=== PATIENT | female | born 1980 | race Caucasian/White ===

== ENCOUNTER → 2018-03-05 07:49 | Outpatient (CLI) | payer OTHER, SELFPAY ==
--- NOTE | 2018-03-05 07:55 | NS.NUTBLAN_ITS ---
Crys returns for follow up nutritional counseling for weight management in preparation for bariatric surgery. Again, she continues to demonstrate that she is highly committed to a lifestyle of weight management. She has incorporated physical activity into each of her days. She will either walk, stationary bike, swim, or mow her lawn. She has one day of rest. She continues with the protein drinks twice daily and she has a supper with protein , vegetable, and a small portion of a starch. She has changed her snacks to all unprocessed foods such as fruits and no longer has Fiber One bars or similar type foods. She continues to drink water. Acknowledged her excellent habits and encouraged her to keep up with them. She is 66 and today is 239.[address]. Her BMI is 37.6 kg/m2. Follow up per [facility] [place] Appointment start time: 0755h End time: 0810h
== END ==
PROVIDERS: PCP Physician Assistant Medical; Visit Provider Dietitian, Registered
DX: E66.9 Obesity, unspecified (principal); Z68.37 Body mass index [BMI] 37.0-37.9, adult; Z71.3 Dietary counseling and surveillance
CPT/HCPCS: 97803

== ENCOUNTER → 2019-04-14 08:36 | Outpatient (REF) | payer OTHER, SELFPAY ==
[2019-04-14 22:14] LABS: Abs Immature Grans 0.03 k/cumm (0.0-0.09); Absolute Basophil Count 0.04 k/cumm (0.0-0.2); Absolute Eosinophil Count 0.08 k/cumm (0.0-0.7); Absolute Monocyte Count 0.81 k/cumm (0.11-0.7); Absolute Neutrophil Count 6.59 k/cumm (1.2-6.7); Basophils % 0.4; Eosinophils % 0.8; HCT 42.4 % (36.0-46.0); HGB 14.7 g/dL (12.0-15.5); Immature Grans % 0.3; Lymphocytes % 23.4; Mean Corp. HGB Concentration 34.7 g/dL (32.0-36.0); Mean Corpuscular Hemoglobin 36.3 pg (27.0-33.0); Mean Corpuscular Volume 104.7 fL (80-95); Mean Platelet Volume 9.5 fL (8.0-11.0); Monocytes % 8.2; Neutrophils % 66.9; Platelet Count 251 x1000/uL (130-400); RBC 4.05 m/cumm (4.00-5.20); White Blood Cell Count 9.85 k/cumm (4.4-10.8)
[2019-04-14 22:26] LABS: Iron 182 ug/dL (50-175); Total Iron Binding Capacity 274 ug/dL (250-450); Transferrin Sat 66 % (15-50)
[2019-04-14 22:58] LABS: Ferritin 86 ng/mL (8-388)
== END ==
LOC: NCHCN 08:36
PROVIDERS: PCP Physician Assistant Medical; Visit Provider Physician Assistant Medical
DX: R23.8 Other skin changes (principal)
CPT/HCPCS: 82728; 83540; 83550; 85025

== ENCOUNTER 2019-06-09 09:27 | Outpatient (REF) | payer OTHER, SELFPAY | END 2019-06-09 09:47 | LOC: NCHCN 09:27 | PROVIDERS: PCP Physician Assistant Medical; Visit Provider Physician Assistant Medical | DX: N76.0 Acute vaginitis (principal) | CPT/HCPCS: 87480; 87510; 87660 ==

== ENCOUNTER 2019-08-05 08:48 | Outpatient (CLI) | payer OTHER, SELFPAY ==
[2019-08-05 09:07] VITALS: BP 99/72; PULSE 60; RESP 16; TEMP 36.5; O2SAT 100
--- NOTE | 2019-08-05 10:52 | PDOC.PAIN ---
Pain Clinic Procedure Note Procedure Note Procedure Note: Bilateral Lumbar Radiofrequency with Coolief Machine PROCEDURE NOTE Date of Service: August 05, 2019 Patient: AILEEN BURNHAM Provider: Apollo Wong MD Pre Operative Diagnosis: lumbar spondylosis Post Operative Diagnosis: same as above PROCEDURE Radiofrequency Ablation of medial branches - bilateral L3, L4, L5-DR CASEY to target bilateral L4/5 and L5/S1 facet joints AILEEN BURNHAM was brought into the fluoroscopy suite and positioned into the prone position on the fluoroscopy table and allowed to adjust to a position of comfort. A grounding pad was placed on the right thigh. The lumbar region was widely prepped with a chloraprep solution, allowed to air dry and draped in standard sterile surgical fashion. Local anesthesia was provided by 15 mL of 2 %lidocaine delivered with a 25g needle. A 17g 100mm radiofrequency introducer needle was placed to the planned anatomic targets guided with intermittent fluoroscopy with a perpendicular approach to terminally place at the junction of the superior articular process and the transverse process of the bilateral L3, L4 and the base of the sacral ala on the bilateral for the L5 medial branch nerve. The stylets were removed and radiofrequency probes with a 4mm active tip were then inserted. Needle tip position of the probes was verified in the AP, oblique, and lateral views. At each site, the medial branch nerve was stimulated at 2 Hz to a maximum 1-2 volts determined to finalize safe needle and electrode placement. The patient was awake and responsive during this portion of the procedure. Each target was anesthetized with 1 mL of 2 % lidocaine for anesthesia for lesioning and then each target was lesioned at 80 degrees Celsius for 2 minutes and 30 seconds. Tissue impedences were noted to be between 250 and 500 Ohms. Electrodes and needles were then removed and bandages placed over the needle placement sites, the patient then returned to the supine position on a stretcher and transported to the recovery room without hemodynamic, neurologic, or allergic reactions. Fluoroscopic images were printed for hard copy recording and digitally archived. POST PROCEDURE EVALUATION: patient tolerated procedure well without need for IV sedation. Several attempts were made to obtain an IV, however, it was not successful prior to beginning of procedure. Follow up plans and appointments were discussed with the AILEEN . Post procedure instruction was given as documented in nursing documentation and having met discharge criteria, AILEEN was discharged from the [facility]. COMMENTS: No complications. F/U with our office as needed. I personally performed this entire procedure. Apollo Wong MD Pain Management Attending Physician
[2019-08-05 10:55] VITALS: BP 126/93; PULSE 63; RESP 16; O2SAT 99
--- NOTE | 2019-08-05 11:14 | DI.RAD_ITS ---
EXAM: XR PAIN CLINIC LUMBAR SP 2V CLINICAL HISTORY: Dx: Lumbar Spondylosis. TECHNIQUE: Fluoroscopy was provided for the referring physician for guidance with performing injecti on procedure. Fluoro time: 1.2 min, 15.21 mGy COMPARISON: No exams were available for comparison FINDINGS: Please see procedure note for details.
[2019-08-05] MEDS: methylPREDNISolone ACETATE 80 MG/ML VIAL IJ (11:22)
[2019-08-05] MEDS: Lidocaine 2% Pres-Free 5 ML VIAL IJ (11:24)
== END 2019-08-05 09:08 ==
PROVIDERS: PCP Physician Assistant Medical; Visit Provider Internal Medicine
DX: M47.816 Spondylosis without myelopathy or radiculopathy, lumbar region (principal)
CPT/HCPCS: 64635; 64636; 72100; J1040

== ENCOUNTER 2019-08-13 00:31 | Outpatient (CLI) | payer OTHER, SELFPAY ==
--- NOTE | 2019-08-13 08:10 | DI.MAMMO_ITS ---
EXAM: MAMMO SCREENING CLINICAL HISTORY: SCREENING, Z12.31, HEALTH MAINTENANCE EXAM, Z00.8. TECHNIQUE: Bilateral full field digital CC and MLO mammographic images were obtained with 3D tomosyn thesis and utilizing computer aided detection (CAD). COMPARISON: Available for comparison. FINDINGS: Masses/Architectural Distortion: None seen. Microcalcifications: No suspicious pleomorphic-type are seen. Skin Thickening/Nipple Retraction: None. IMPRESSION: 1. No significant interval change with no specific features of malignancy noted. 2. Unless there is more urgent need, screening mammography is recommended, as per [employer] guidelines. ACR BI-RAD Category- 1 Negative Breast Density - Category B - Scattered areas of fibroglandular density A negative radiographic report should not delay biopsy if a dominant or clinically suspicious mass is present. Up to ten percent of cancers are not identified on mammography. A negative report may reinforce clinical impression. Adenosis and dense breasts may obscure an underlying neoplasm. False positive reports average 6 to 10%. Patient will receive a letter notifying them of these results.
== END 2019-08-13 00:51 ==
PROVIDERS: PCP Physician Assistant Medical; Visit Provider Physician Assistant Medical
DX: Z12.31 Encounter for screening mammogram for malignant neoplasm of breast (principal)
CPT/HCPCS: 77063; 77067

== ENCOUNTER 2019-09-08 20:39 | Outpatient (REF) | payer OTHER, SELFPAY ==
[2019-09-08 19:38] LABS: Abs Immature Grans 0.03 k/cumm (0.0-0.09); Absolute Basophil Count 0.02 k/cumm (0.0-0.2); Absolute Eosinophil Count 0.08 k/cumm (0.0-0.7); Absolute Neutrophil Count 3.38 k/cumm (1.2-6.7); Basophils % 0.4; Eosinophils % 1.4; HCT 42.1 % (36.0-46.0); HGB 13.8 g/dL (12.0-15.5); Immature Grans % 0.5 %; Mean Corp. HGB Concentration 32.8 g/dL (32.0-36.0); Mean Corpuscular Hemoglobin 34.8 pg (27.0-33.0); Mean Platelet Volume 8.7 fL (8.0-11.0); Monocytes % 10.5; Neutrophils % 59.2; Platelet Count 224 x1000/uL (130-400); RBC 3.97 m/cumm (4.00-5.20); RBC Distribution Width 12.2 % (11.7-14.6); White Blood Cell Count 5.71 k/cumm (4.4-10.8)
[2019-09-08 20:07] LABS: Diff Comment RBC Morph Reviewed; Macrocytosis 3+
== END 2019-09-08 20:59 ==
LOC: NCHCN 20:39
PROVIDERS: PCP Physician Assistant Medical; Visit Provider Physician Assistant Medical
DX: Z98.84 Bariatric surgery status (principal)
CPT/HCPCS: 85025

== ENCOUNTER 2019-10-15 02:13 | Outpatient (CLI) | payer OTHER, SELFPAY ==
--- NOTE | 2019-10-15 | DI.MRI_ITS ---
EXAM: MR LUMBAR SPINE WO CLINICAL HISTORY: LOW BACK PAIN M54.5. TECHNIQUE: Multiplanar multisequence MRI was performed. COMPARISON: MRI - LUMBAR SPINE WO CONTRAST from 10/12/2017 FINDINGS: MR examination of the lumbosacral spine was performed and is compared with prior study 10/12/2017. M ild bony signal changes seen adjacent to L5-S1 intervertebral disc consistent with disc degeneration. Signal loss noted in L4-5 and L5-S1 intervertebral discs also consistent with disc degeneration. T here is loss of disc height at L5-S1. The conus medullaris appears intact. No bony central canal spinal stenosis seen. There is moderate bilateral neural foraminal stenosis at L5-S1, grossly unchanged from prior study of 10/12/2017. There is mild disc bulge at L 1-2 and L2-3 levels without significant disc herniation or neural impin gement. No significant findings at L3-4. At L4-5, there is a slight central disc herniation which is new since 2018, no gross neural impingeme nt. At L5-S1, there is a moderate-sized, broad-based disc herniation slightly more prominent than on prio r study of 2018, this contributes to narrowing of the neural foramina bilaterally. The L5 nerve root s may potentially be impinged bilaterally in the neural foramina. IMPRESSION: Small new disc herniation at L4-5, no gross neural impingement. Mild increase in prominence of broad-based disc herniation at L5-S1, bilateral neural foraminal narro wing again noted, grossly unchanged from 2018. DATA REPOSITORY:
--- NOTE | 2019-10-15 | DI.RAD_ITS ---
EXAM: XR SACROILIAC JOINTS XR SACROILIAC JOINTS CLINICAL HISTORY: LOW BACK PAIN M54.5 LOW BACK PAIN M54.5 TECHNIQUE: COMPARISON: No exams were available for comparison FINDINGS: Four views were obtained. Fixation devices are seen superimposed over the SI joints bilaterally. Ot herwise the SI joints appear well maintained. There are prominent hypertrophic degenerative changes of the lower lumbar spine and there are is marked disc space narrowing L4-5 and L5-S1 consistent with disc degeneration at these levels. IMPRESSION:
== END 2019-10-15 02:33 ==
PROVIDERS: PCP Physician Assistant Medical; Visit Provider Physician Assistant Medical
DX: M54.5 Low back pain (principal); M51.37 Other intervertebral disc degeneration, lumbosacral region; M51.27 Other intervertebral disc displacement, lumbosacral region
CPT/HCPCS: 72148; 72202

== ENCOUNTER 2020-03-02 09:32 | Outpatient (CLI) | payer OTHER, SELFPAY ==
--- NOTE | 2020-03-02 06:00 | DI.RAD_ITS ---
EXAM: XR PAIN CLINIC LUMBAR SP 2V CLINICAL HISTORY: Dx:Lumbar Radiculopathy COMPARISON: No exams were available for comparison FINDINGS: C-arm fluoroscopy was utilized by Dr. Wong. Please see Dr. Wong's procedure note. Hard copy shows inject ion at the neural foramen on the right at what appears to be the L5-S1 level. Fluoro time, 137 seconds.
[2020-03-02 10:13] VITALS: BP 136/72; PULSE 71; RESP 17; TEMP 36.6; O2SAT 98
--- NOTE | 2020-03-02 10:22 | PDOC.PAIN ---
Pain Clinic Procedure Note Procedure Note Procedure Note: PROCEDURE NOTE Transforaminal Epidural Steroid Injection with Fluoroscopic Guidance at RIGHT L5 TFESI Chief Complaint: RIGHT leg pain. Pre-operative diagnosis: LUMBAR RADICULOPATHY Post-operative diagnosis: SAME ABOVE AILEEN BURNHAM has been referred to the [facility] for Lumbar Transforaminal Epidural Steroid Injection RIGHT L5 TFESI. COMMENTS: Referring provider: Dr. Kramer, Ms MoyCadence Cresencio, CHARGE MASTER SPECIALIST Pre-procedure VAS: 7/10 to the RIGHT leg, patient reports pain is mainly in the right groin. She denies lateral thigh pain, no posterior right leg pain. In fact, she reports minimal pain down the right leg. Patient also reports right groin pain has been present since before her SI joint fusion surgery. Follow up plan: pending result from today's injection, patient will follow up with Ms Dupont or Dr Kramer to discuss the next steps in management. AILEEN BURNHAM was greeted by the nurse who verified patients name and . Patient was then taken to the fluoroscopy suite. AILEEN was interviewed and the medical record reviewed. There were no medical, pharmacologic, radiographic or other structural contraindications to attempting fluoroscopically guided transforaminal lumbar epidural steroid injection. The risks, benefits, and potential side effects were reviewed with the patient. Risk include, but not limited to, post dural puncture, headache, infection, nerve injury, allergic reaction, possible increase in symptoms over the ensuing 24 to 48 hours, and paralysis. The patient appeared to understand, questions were answered and the patient agreed to proceed. Once I obtained informed verbal consent, the printed consent form was signed by the patient and myself. Standard time-out procedure was performed. TECHNIQUE: After informed written consent was obtained the patient was placed in the prone position. The lumbar spine was prepped with chloraprep and draped. Sterile technique was observed during the entire procedure ( cap, gloves, and mask were worn). Vitals signs were monitored throughout the procedure. The right side was marked with a radioopaque marker. The skin and subcutaneous structures were anesthetized with lidocaine 1% to a total volume of 3 ML at each level. Under fluoroscopic guidance, in ipsilateral oblique view, co-axial approach, 22 gauge 5'' spinal needle(s) were advanced to the base of the L5 pedicle(s). The needle(s) were advanced to the superio-posterior aspect of the neural foramen under lateral view. Oblique and AP views were rechecked. Under AP view Omnipaque 240 1 cc's was injected while visualized with fluoroscopy. There was no evidence of intravascular uptake, the epidural space was delineated. 15 mg Dexamethasone was injected after negative aspiration, at each level, followed by lidocaine 1% 1.0-ML at each level. (49 cc of Omnipaque was wasted) Outcome: The patient tolerated the procedure well and had stable vital signs. The patient noted after getting up after the procedure that their right leg pain (groin) was at a 5 out of 10 level. Follow up plans and appointments were discussed with AILEEN . The patient was observed in the pain clinic and then discharged after having met discharge criteria to the care of a stacker driver. The patient received written instructions as documented in nursing records. Disposition: AILEEN was discharged from the procedure suite without new neurological complaints. Follow-up: Follow up with as scheduled or PRN. I personally performed the entire procedure. Apollo Wong MD ABPN-subspecialty board certification in Pain Medicine Attending Physician-Pain Management
[2020-03-02] MEDS: Dexamethasone Sod. Phos./Pres-Free 10 MG/ML VIAL IJ (10:46)
[2020-03-02] MEDS: Omnipaque 240 MG/ML 50 ML BTL IJ (10:47)
[2020-03-02 10:48] VITALS: BP 126/85; PULSE 69; RESP 13; O2SAT 100
== END 2020-03-02 09:52 ==
PROVIDERS: PCP Physician Assistant Medical; Visit Provider Internal Medicine
DX: M54.16 Radiculopathy, lumbar region (principal)
CPT/HCPCS: 64483; 72100; Q9967

== ENCOUNTER 2020-06-28 09:29 | Outpatient (REF) | payer OTHER, SELFPAY ==
[2020-06-28 19:29] LABS: Abs Immature Grans 0.04 10^3/uL (0.0-0.06); Absolute Basophil Count 0.05 10^3/uL (0.0-0.2); Absolute Lymphocyte Count 1.47 10^3/uL (1.2-3.4); Absolute Monocyte Count 0.79 10^3/uL (0.1-0.8); Absolute Neutrophil Count 7.91 10^3/uL (1.2-6.7); Basophils % 0.5; HCT 44.2 % (36.0-46.0); HGB 14.3 g/dL (11.2-15.7); Immature Grans % 0.4; Lymphocytes % 14.2; MCH 35.5 pg (27.0-33.0); MCHC 32.4 % (32.0-36.0); MCV 109.7 fL (80-95); MPV 9.1 fL (8.0-11.0); Monocytes % 7.6; Neutrophils % 76.3; Nucleated RBC 0 %; Platelet Count 228 10^3/uL (130-400); RBC 4.03 10^6/uL (3.93-5.22); RDW 12.2 % (11.7-14.6); RDW-SD 50.1 fL; WBC 10.36 10^3/uL (4.4-10.8)
[2020-06-28 19:36] LABS: ALT 27 U/L (14-59); AST 22 U/L (15-37); Albumin 3.7 g/dL (3.4-5.0); Alkaline Phosphatase 69 U/L (46-116); Amylase 58 U/L (25-115); Anion Gap 5.1 mmol/L (3-11); BUN 10 mg/dL (7-18); Bilirubin, Total 0.3 mg/dL (0.2-1.0); CO2 27.9 mmol/L (21.0-32.0); CREATININE 0.84 mg/dL (0.55-1.02); Chloride 108 mmol/L (98-107); Glucose 97 mg/dL (74-106); Lipase 75 U/L (73-393); Potassium 4.6 mmol/L (3.5-5.1); Sodium 141 mmol/L (136-145); Total Protein 6.6 g/dL (6.4-8.2)
[2020-06-28 19:50] LABS: Diff Comment RBC Morph Reviewed
[2020-06-28 19:51] LABS: Macrocytosis 2+
== END 2020-06-28 09:49 ==
LOC: NCHCN 09:29
PROVIDERS: PCP Physician Assistant Medical; Visit Provider Physician Assistant Medical
DX: R11.10 Vomiting, unspecified (principal)
CPT/HCPCS: 80053; 83690; 82150; 85025

== ENCOUNTER 2020-07-05 00:29 | Outpatient (CLI) | payer OTHER, SELFPAY ==
--- NOTE | 2020-07-05 | DI.US_ITS ---
EXAM: US RENAL CLINICAL HISTORY: URINARY HESITANCY,R39.11 TECHNIQUE: Ultrasound performed using standard protocol. COMPARISON: US PELVIS TRANSVAG from 07/03/2017 FINDINGS: Renal ultrasound was performed according to the usual protocol. Kidneys are normal in size and shape and there is no evidence of renal mass, hydronephrosis, or nephrolithiasis. Ureteral jets are noted bilaterally. Urinary bladder appears intrinsically intact, pre and postvoid urinary bladder volume measurements are 136 cc and 73 cc respectively. IMPRESSION: Postvoid residual volume of the urinary bladder at 73 cc. No intrinsic abnormality of the bladder. No abnormality of the upper urinary tracts. DATA REPOSITORY:
== END 2020-07-05 00:49 ==
PROVIDERS: PCP Physician Assistant Medical; Visit Provider Physician Assistant Medical
DX: R39.11 Hesitancy of micturition (principal)
CPT/HCPCS: 76770

== ENCOUNTER → 2020-07-09 10:38 | Outpatient (BNVA) | payer OTHER, SELFPAY | PROVIDERS: PCP Physician Assistant Medical; Referring Provider Physician Assistant Medical; Visit Provider Surgery | DX: R11.10 Vomiting, unspecified (principal); Z98.84 Bariatric surgery status; Z11.59 Encounter for screening for other viral diseases | CPT/HCPCS: 99202; 99213 ==

== ENCOUNTER 2020-07-16 03:25 | Outpatient (CLI) | payer OTHER, SELFPAY ==
[2020-07-19 17:09] LABS: COVID-19 RT-PCR Result NEGATIVE (Negative)
== END 2020-07-16 03:45 ==
PROVIDERS: PCP Physician Assistant Medical; Visit Provider Surgery
DX: Z11.59 Encounter for screening for other viral diseases (principal); Z01.818 Encounter for other preprocedural examination
CPT/HCPCS: U0003

== ENCOUNTER 2020-07-21 11:07 | Day surgery (SDC) | payer OTHER, SELFPAY ==
--- NOTE | 2020-07-21 07:12 | ENDO_ITS ---
Date of service: 07/21/20 Time of Service: 13:32 Endoscopy Report DATE OF PROCEDURE: 07/21/20 PRE-OP DIAGNOSIS: Post-prandial vomiting POST-OP DIAGNOSIS: other (mild inflammation in the gastric remnant and the esophagus) PROCEDURE: EGD with biopsies SURGEON: Angy Araya ANESTHESIA: other (General/ASA 2/Courtney moctezuma, ABEBA) ESTIMATED BLOOD LOSS: 3 PATHOLOGY: other (gastric remnant bx, ge junction bx) COMPLICATIONS: None DISPOSITION: same day INDICATIONS: Ms Giraldo is a pleasant 40-year-old female status post Dev-en-Y gastric bypass a couple years ago. About 6 months ago she started to have intermittent postprandial vomiting. Over the last 6 weeks that has become more frequent and she is now noticing some blood. She states that usually she has a bout of emesis 1 to 2 hours after eating. Sometimes is undigested food other times is a little bit of acid and bile. She has also developed some burning feeling in the back of her throat. She has been on Protonix 40 mg twice daily since after her surgery. Recently she was switched to Nexium. She has not noticed any changes in symptoms. I suspect that she has a marginal ulcer which is a complication of a Dev-en-Y surgery. She may have some obstruction as well due to the ulcer. If it is a marginal ulcer then she will need some Carafate as most of the time its bile that is irritating the stomach lining. We discussed EGD with biopsies. We also reviewed possible dilation if there is a component of obstruction. Risks, benefits and complications have been reviewed. Complications include but are not limited to bleeding, pain, perforation, sore throat, aspiration, and adverse reaction to the medications. Questions were entertained and answered to their satisfaction and they wished to proceed. No guarantees were given or implied. We also discussed testing as well as quarantine requirements per state and hospital policy. COVID-19 testing explained to the patient. Reason for test reviewed. Quarantine per state requirements reviewed with patient. Patient understands and agrees to testing. We will schedule the patient for an EGD with biopsies 3 to 4 days after Covid testing. FINDINGS: mild inflammation in the gastric remnant and distal esophagus. No strictures or ulcers PROCEDURE DESCRIPTION: After informed consent was obtained the patient was take to the procedure room and placed in a supine position. Monitors were applied and a time out was done. The patients name, date of , procedure type, allergies to medications and metal in their body was reviewed. A bite block was placed and the patient was sedated. Once sedated and comfortable the gastroscope was advanced through the oropharynx which was grossly normal into the esophagus. The proximal and mid- esophagus were normal. In the distal esophagus there was mild inflammation noted. The scope was advanced into the stomach remnant and into the small bowel. There was no inflammation of the small bowel. There were no marginal ulcers. There were no strictures. Biopsies of the gastric remnant were done. The scope was retracted back into the esophagus and biopsies were done of the GE junction to rule out Mccrary's. The Z line was regular. The GE junction was at 35 cm. There was no scarring and no ulcers. The scope was removed and the patient was woken up and taken back to [facility] in stable condition. Follow up: in 2 weeks. Will start patient on carafate
--- NOTE | 2020-07-21 07:14 | PDOC.DSDIS_ITS ---
Discharge Plan Disposition Patient Disposition: HOME Condition: Good Discharge Details Reason For Visit: post-prandial vomiting Attending Provider: Angy Araya Primary Care Provider: Jo Shrestha Home Meds and New Rx's Prescriptions: New sucralfate [Carafate] 1 gram tablet 1 g PO QID Qty: 56 RF: 0 Continued trazodone 100 mg Tablet 100 mg PO HS PRN PRNRF: 0 ondansetron 4 mg Tablet,Disintegrating 4 mg PO Q8H PRNRF: 0 topiramate 100 mg Tablet 200 mg PO BID RF: 0 oxycodone 5 mg Tablet 5 mg PO BID PRNRF: 0 duloxetine [Cymbalta] 60 mg Capsule,Delayed Release(Dr/Ec) 60 mg PO DAILY RF: 0 chlorhexidine gluconate [Peridex] 0.12 % Mouthwash 15 ml BUCCAL BID RF: 0 Flintstones Complete Tablet,Chewable 1 tab PO BID RF: 0 alisa citrate-mag ox,aspart-D3 250 mg-125 mg- 200 unit Wafer 1 wafer PO BID RF: 0 Benefiber Chewable 3 tab PO DAILY RF: 0 bupropion HCl [Wellbutrin SR] 200 mg Tablet Sustained-Release 12 Hr 400 mg PO DAILY RF: 0 albuterol sulfate [ProAir HFA] 8.5 GM HFA aerosol inhaler 2 puff Inhalation Q4H PRN PRNRF: 0 lansoprazole 30 mg capsule,delayed release(DR/EC) 30 mg PO DAILY RF: 0 fexofenadine [Pina Allergy] 180 mg tablet 180 mg PO DAILY RF: 0 baclofen 10 MG tablet 10 mg PO BID PRNRF: 0 fluticasone propionate 16 GM spray,suspension 2 spray NS DAILY PRNRF: 0 Spiriva with HandiHaler 1 PUFF capsule, w/inhalation device 1 tab PO DAILY RF: 0 cyanocobalamin (vitamin B-12) [Vitamin B-12] 500 MCG tablet 1 tab PO DAILY RF: 0 Discharge Instructions Additional Instructions: Findings: mild inflammation. No ulcers. No scar tissue Follow up: 2 weeks medications: Start carafate, 1 tab before meals and at bedtime. Please call if you develop: fevers >101.5 Nausea or Vomiting Abdominal pain that is not transient DAY SURGERY UNIT POST ENDOSCOPY INSTRUCTIONS 1. Because there will be medication in your system for the next 24 hours, you may feel a little sleepy. Your coordination will be affected. Therefore: a. Do not drive or operate dangerous equipment for 24 hours. b. Do not drink alcohol beverages for 24 hours (not even beer). c. Plan to go home and rest for the day. 2. Generally there are no restrictions on your activity after a day or so has gone by, but you may feel a bit fatigued for a few days. 3 After you arrive home you may have a light meal and return to a normal diet as you can tolerate it without feeling sick to your stomach. 4. After surgery, you may feel pain or discomfort. This should be only transient, but if it persists please contact your doctor. 5. If there are any questions regarding the findings of your procedure, please feel free to contact your doctor. 6. If you are unable to contact your doctor with a problem, contact the hospital at [phone]. 7. Continue all your regular medications unless directed otherwise. I understand the above instructions and have no questions. Signature of Patient or Responsible Adult Escort Date/Time Name of Responsible Adult Escort Signature of Nurse Date/Time Referrals: Angy Araya MD [ [facility] STAFF PHYSICIAN] - 08/03/20 2:30 pm Activity:: Activity as Tolerated Diet:: As Tolerated Discharge Orders Discharge Orders: Discharge Order (Routine); Ordered 07/21/20 Ordered By: Angy Araya
[2020-07-21 11:19] VITALS: BP 115/74; PULSE 70; RESP 16; TEMP 36.2; O2SAT 96
[2020-07-21] MEDS: Lactated Ringers 1,000 ML 80 ML IV (11:51)
--- NOTE | 2020-07-21 13:20 | STOM_PTH ---
PATIENT: Crys Giraldo LOC: [facility] U#:[id number] AGE/SX: 40/F ROOM: RE07/21/[address]: Angy Araya MD : 1980 BED: DIS: 07/21/2020 SPEC #: [id number] RECD: 07/21/20 16:18 STATUS: KATTY REQ #: [id number] TRACEY: 07/21/20 13:[address]: Angy Araya DEPT: Surgical Specimen RECD BY: Elke Kumar ENTERED: 07/21/20 16:19 SP TYPE: STOMACH OTHR DR: Jo Shrestha Tissues: 1 - STOMACH BIOPSY 2 - ESOPHAGUS BIOPSY Procedures: GROSS AND MICRO LEVEL 4 Comments: [id number]
[2020-07-21 13:46] VITALS: BP 121/83; PULSE 68; RESP 16; TEMP 36.1; O2SAT 98
== END 2020-07-21 13:55 | disposition home or self-care (01) ==
LOC: SUR 11:08
PROVIDERS: PCP Physician Assistant Medical; Visit Provider Surgery
PROC: 0D758ZZ Dilation of Esophagus, Via Natural or Artificial Opening Endoscopic (ICD-10-PCS; CPT 43239; principal; 2020-07-21 13:00)
DX: K92.0 Hematemesis (principal); Z98.84 Bariatric surgery status; K29.70 Gastritis, unspecified, without bleeding; K20.90 Esophagitis, unspecified without bleeding
CPT/HCPCS: 43239; 88305; J2001

== ENCOUNTER → 2020-08-03 10:10 | Outpatient (BNVA) | payer OTHER, SELFPAY | PROVIDERS: PCP Physician Assistant Medical; Referring Provider Physician Assistant Medical; Visit Provider Surgery | DX: R11.10 Vomiting, unspecified (principal); Z98.84 Bariatric surgery status | CPT/HCPCS: 99212; 99213 ==

== ENCOUNTER 2020-09-07 16:49 | Outpatient (REF) | payer OTHER, SELFPAY ==
[2020-09-08 09:00] LABS: C Diff PCR Negative (Negative)
[2020-09-08 11:41] LABS: Campylobacter PCR Negative (Negative); Salmonella PCR Negative (Negative); Shiga Toxin PCR Negative (Negative); Shigella/Enteroinvasive Ecoli Negative (Negative)
== END 2020-09-07 16:50 | disposition home or self-care (01) ==
LOC: LBN 16:49
PROVIDERS: PCP Physician Assistant Medical; Visit Provider Physician Assistant Medical
DX: R19.7 Diarrhea, unspecified (principal)
CPT/HCPCS: 87329; 87493; 87505; 83630; 87324

== ENCOUNTER 2020-10-28 01:39 | Outpatient (CLI) | payer OTHER, SELFPAY ==
--- NOTE | 2020-10-28 08:05 | DI.RAD_ITS ---
EXAM: XR SHOULDER RT COMPLETE 2+V CLINICAL HISTORY: RT SHOULDER PAIN, M25.511 TECHNIQUE: COMPARISON: No exams were available for comparison FINDINGS: Five views were obtained. There is reportedly history of shoulder pain with no history of recent inj ury. There are ossific radiodensities projected in the soft tissues adjacent to the acromioclavicular join t and the acromion, these may represent previous injury. Alternatively these could represent fragmen tation of osteophytes. No other significant bony abnormality seen. The cartilaginous joint space of the glenohumeral joint appears fairly well maintained. Alignment ap pears within normal limits IMPRESSION: Question post-traumatic and/or degenerative changes involving acromion and AC joint. No additional s ignificant findings. RADIATION DOSE DELIVERED: Total DLP
--- NOTE | 2020-10-28 08:05 | DI.RAD_ITS ---
EXAM: XR HAND RT COMPLETE CLINICAL HISTORY: HAND PAIN, M79.643. TECHNIQUE: 2D digital imaging was performed. COMPARISON: No exams were available for comparison FINDINGS: There is no evidence of fracture or dislocation. No osseous lesions. No erosions evident. No radio paque foreign body. Para-articular calcifications. No obvious findings at the level of the wrist an d no significant ulnar variance. IMPRESSION: DATA REPOSITORY: RADIATION DOSE DELIVERED:
--- NOTE | 2020-10-28 08:05 | DI.RAD_ITS ---
EXAM: XR HAND LT COMPLETE CLINICAL HISTORY: HAND PAIN, M79.643. TECHNIQUE: 2D digital imaging was performed. COMPARISON: CR XR HAND RT COMPLETE from 10/28/2020 FINDINGS: No evidence of fracture or dislocation. Thumb is flexed. No obvious erosions at the metacarpophalan geal joints nor elsewhere left hand and wrist. No significant ulnar variance at the wrist level. Titi ne density is normal. There are no osseous lesions. No abnormal soft tissue calcifications. IMPRESSION: DATA REPOSITORY: RADIATION DOSE DELIVERED:
--- NOTE | 2020-10-28 08:06 | DI.RAD_ITS ---
EXAM: XR HIP RT COMPLETE AP PELVIS CLINICAL HISTORY: RT HIP PAIN, M25.551. TECHNIQUE: 2D digital imaging was performed. COMPARISON: CR LUMBAR SPINE COMPLETE from 08/07/2017 FINDINGS: Again noted symmetrical appearing hardware across both sacroiliac joints. There is no ankylosis of t he SI joints. Hips appear unremarkable including lateral view the right hip. There is no hip joint space narrowing on either side.. Bone density is normal. No osseous lesions evident. IMPRESSION: DATA REPOSITORY: RADIATION DOSE DELIVERED:
== END 2020-10-28 01:59 ==
PROVIDERS: PCP Physician Assistant Medical; Visit Provider Physician Assistant Medical
DX: M25.551 Pain in right hip (principal); M25.511 Pain in right shoulder; M79.641 Pain in right hand; M79.642 Pain in left hand
CPT/HCPCS: 73030; 73130; 73502

== ENCOUNTER 2020-12-01 09:17 | Outpatient (CLI) | payer OTHER, SELFPAY ==
--- NOTE | 2020-12-01 09:00 | DI.RAD_ITS ---
Exam(s) XR SHOULDER LT COMPLETE 2+V EXAM: XR SHOULDER LT COMPLETE 2+V CLINICAL HISTORY: left shoulder pain. TECHNIQUE: 2D digital imaging was performed. COMPARISON: No exams were available for comparison FINDINGS: BONES: No acute fracture is present. No bony destructive lesion is seen. JOINTS: No dislocation present. Mild hypertrophic changes are seen at the acromioclavicular joint. T he glenohumeral joint is well maintained. SOFT TISSUE: Normal. IMPRESSION: Mild degenerative changes of the left AC joint. DATA REPOSITORY: RADIATION DOSE DELIVERED:
== END 2020-12-01 09:18 | disposition home or self-care (01) ==
LOC: DIORS 09:17
PROVIDERS: PCP Physician Assistant Medical; Referring Provider Physician Assistant Medical; Visit Provider Student in an Organized Health Care Education/Training Program
DX: M25.511 Pain in right shoulder (principal); M25.512 Pain in left shoulder
CPT/HCPCS: 99203; 99213; 73030

== ENCOUNTER 2020-12-03 04:19 | Outpatient (CLI) | payer OTHER, SELFPAY ==
--- NOTE | 2020-12-03 | DI.MAMMO_ITS ---
Exam(s) US BREAST RT LIMITED MG MAMMO DIAGNOSTIC BI EXAM: US BREAST RT LIMITED and mammo diagnostic bilateral CLINICAL HISTORY: RT BREAST LUMP, N63.0. TECHNIQUE: Craniocaudal and mediolateral oblique Full Field Digital Mammography views with Computer Aided Diagnosis followed by Tomosynthesis and right breast ultrasound. COMPARISON: Priors available for comparison. FINDINGS: Mammography/Tomosynthesis: Masses/Architectural Distortion: None seen. Microcalcifictions: No suspicious pleomorphic-type are seen. Skin Thickening/Nipple Retraction: None. Right breast US: Echotexture: Normal appearance of the glandular tissue. Shadowing: No suspicious foci. Cyst: None. Solid lesions: None seen. Ductal dilation: None. IMPRESSION: 1. No evidence of malignancy is noted. 2. Unless there is more urgent need, follow-up screening mammography is recommended, as per [employer] guidelines. A negative mammogram and ultrasound should not preclude biopsy of a clinic ally suspicious mass. 3. The findings were discussed with the patient on the date of the examination. BI-RADS Category 1 - Negative Breast Density - Category B - Scattered areas of fibroglandular density Breast density Category C or D implies that the patient has dense breast tissue. Dense breast tissue can make it harder to find cancer on a mammogram. Dense breast tissue is also associated with an incr eased risk of breast cancer. This information about the result of the mammogram report was provided to the patient to raise their awareness. Use this report when you speak with the patient about their risks for breast cancer, which includes their family history. At that time, you may recommend additional screening tests (Ultrasoun d or MRI) as these tests may add significant information. A negative radiographic report should not delay biopsy if a dominant or clinically suspicious mass is present. Up to ten percent of cancers are not identified on mammography. A negative report may reinforce clinical impression. Adenosis and dense breasts may obscure an underlying neoplasm. False positive reports average 6 to 10%. Patient will receive a letter notifying them of these results.
== END 2020-12-03 04:39 ==
PROVIDERS: PCP Physician Assistant Medical; Visit Provider Physician Assistant Medical
DX: N63.10 Unspecified lump in the right breast, unspecified quadrant (principal)
CPT/HCPCS: 76642; 77062; 77066; G0279

== ENCOUNTER → 2021-02-01 08:41 | Outpatient (BNVA) | payer OTHER, SELFPAY | PROVIDERS: PCP Physician Assistant Medical; Referring Provider Physician Assistant Medical; Visit Provider Student in an Organized Health Care Education/Training Program | DX: M75.21 Bicipital tendinitis, right shoulder (principal); M75.22 Bicipital tendinitis, left shoulder; M75.51 Bursitis of right shoulder; M75.52 Bursitis of left shoulder; M25.311 Other instability, right shoulder; M25.312 Other instability, left shoulder; M75.41 Impingement syndrome of right shoulder; M75.42 Impingement syndrome of left shoulder | CPT/HCPCS: 99213 ==

== ENCOUNTER 2021-02-24 02:58 | Outpatient (CLI) | payer OTHER, SELFPAY ==
--- NOTE | 2021-02-24 06:45 | DI.MRI_ITS ---
Exam(s) MR UPPER JOINT RT WO EXAM: MR UPPER JOINT RT WO CLINICAL HISTORY: PAIN,IMPINGEMENT SYNDROME,BURSITIS, TENDINITIS, INSTABILITY,M75.22,M75.21,M TECHNIQUE: Multiplanar multisequence MRI of the shoulder was performed. COMPARISON: CR XR SHOULDER LT COMPLETE 2+V from 12/01/2020 FINDINGS: MARROW:There is no evidence of fracture, Hill-Sachs deformity, nor ominous osseous lesions. ROTATOR CUFF MECHANISM: AC JOINT/ACROMIUM: There are moderate degenerative changes in the AC joint. Downgoing osteophyte on the clavicular side causing some impingement upon the subacromial space. The undersurface of the acr omion flat. There is no evidence of os acromiale. Supraspinatus: Mild tendinitis signal. No full-thickness tear. No atrophy. Infraspinatus: There is significant signal abnormality in the infraspinatus insertion tendon. On the sagittal images this is over an AP measurement of 16 millimeters at the insertion on the greater tub erosity. There is, however, no full-thickness tear. There are small degenerative subarticular cysts in the posterior greater tuberosity subjacent to the infraspinatus tendon insertion. There is no mu scle atrophy. Teres Minor: Intact. No evidence of tear nor muscle atrophy. Subscapularis/anterior cuff: Intact. No tear. No atrophy. BICEPS TENDON: Exhibits normal position within the intertubercular groove. No tear. No tenosynovitis. LABRUM: Superior labrum is intact. Posterior labrum is intact. Mid level anterior labrum exhibits s ome fluid signal between the labral substance and osseous glenoid consistent with element of tearing. The inferior labrum appears intact. There is no evidence of paralabral cyst. GLENOHUMERAL JOINT: No joint effusion nor obvious loose intra-articular bodies. No chondral defects. No osteophytes. There are no degenerative subarticular cysts in the osseous glenoid. No evidence o f capsular tear. The inferior glenohumeral ligament is intact. QUADRILATERAL SPACE: No evidence of mass in the region of the axillary nerve and dorsal circumflex hu meral vessels. Visualized triceps muscle at this level appears unremarkable. IMPRESSION: 1. The main finding here is tendinitis signal which is mostly confined to the infraspinatus tendon an d with lesser involvement of the supraspinatus. There is signal abnormality at the infraspinatus and conjoined insertional site on the greater tuberosity which measures 1.6 cm AP measurement on the sag ittal fat sat T2 images. However, there does not appear to be a full-thickness tear. There is no fl uid in the overlying subacromial-subdeltoid bursa. No retraction and no muscle atrophy. 2. There is mild tearing of the anterior labrum with fluid signal seen interposed between the labral substance and the anterior osseous glenoid on 2 images. No other labral tears nor paralabral cyst an d the biceps tendon is intact. 3. No glenohumeral joint effusion. No loose intra-articular bodies. Minimal of any significant dege nerative changes in the glenohumeral joint 4. Degenerative changes in the AC joint as described above causing some impingement. DATA REPOSITORY:
--- NOTE | 2021-02-24 06:45 | DI.MRI_ITS ---
Exam(s) MR UPPER JOINT LT WO EXAM: MR UPPER JOINT LT WO CLINICAL HISTORY: IMPINGEMENT SYNDROME,INSTABILITY,SHOULDER BURISITIS,TENDINITIS,PAIN,M75.22 TECHNIQUE: Multiplanar multisequence MRI of the shoulder was performed. COMPARISON: CR XR SHOULDER LT COMPLETE 2+V from 12/01/2020 MR MR UPPER JOINT RT WO from 02/24/2021 FINDINGS: MARROW:There is no evidence of fracture, Hill-Sachs deformity, nor ominous osseous lesions. ROTATOR CUFF MECHANISM: AC JOINT/ACROMIUM: There are mild-moderate degenerative changes in the AC joint. There is small down going osteophytes on both sides the joint causing some impingement.. There is no evidence of os acromiale. Supraspinatus: There is focus of signal abnormality at the level of the conjoint tendinous insertion of the supra and infraspinatus located approximately 1 cm above the greater tuberosity consistent wit h partial thickness articular surface side tearing. This signal abnormality measures 8 millimeters wide. On the sagittal images it measures 9 millimeters AP. There is no muscle atrophy. Infraspinatus: See above. No muscle atrophy. Teres Minor: Intact. No evidence of tear nor muscle atrophy. Subscapularis/anterior cuff: Intact. No abnormal signal at the level of the multipennate insertional fibers. No significant tear nor atrophy. BICEPS TENDON: Biceps tendon is normally positioned within the intertubercular groove. No evidence o f tear nor prominent tenosynovitis. LABRUM: No labral tear identified. No evidence of paralabral cyst. GLENOHUMERAL JOINT: No joint effusion nor obvious loose intra-articular bodies. No chondral defects. No osteophytes. No degenerative subarticular cysts. No evidence of capsular tear. The inferior gle nohumeral ligament is intact. QUADRILATERAL SPACE: No evidence of mass in the region of the axillary nerve and dorsal circumflex hu meral vessels. Visualized triceps muscle at this level appears unremarkable. IMPRESSION: 1. The main finding here is an area of tendinitis partial-thickness tearing at the level of the conjo int insertional tendon of the supraspinatus-infraspinatus, somewhat similar to the opposite shoulder but slightly smaller. There is no fluid in the overlying subacromial-subdeltoid bursa. No retractio n and no muscle atrophy. There is some impingement at the AC joint level. 2. No obvious labral nor biceps tear. 3. No evidence of glenohumeral joint effusion or loose intra-articular bodies. Minimal if any signif icant change in the glenohumeral joint. DATA REPOSITORY:
== END 2021-02-24 03:18 ==
PROVIDERS: PCP Physician Assistant Medical; Visit Provider Student in an Organized Health Care Education/Training Program
DX: M25.311 Other instability, right shoulder (principal); M25.312 Other instability, left shoulder; M75.21 Bicipital tendinitis, right shoulder; M75.22 Bicipital tendinitis, left shoulder; M75.41 Impingement syndrome of right shoulder; M75.42 Impingement syndrome of left shoulder; M75.51 Bursitis of right shoulder; M75.52 Bursitis of left shoulder; M19.011 Primary osteoarthritis, right shoulder; M19.012 Primary osteoarthritis, left shoulder; S43.401A Unspecified sprain of right shoulder joint, initial encounter; S43.402A Unspecified sprain of left shoulder joint, initial encounter; X58.XXXA Exposure to other specified factors, initial encounter
CPT/HCPCS: 73221

== ENCOUNTER → 2021-03-02 08:52 | Outpatient (BNVA) | payer OTHER, SELFPAY | PROVIDERS: PCP Physician Assistant Medical; Referring Provider Physician Assistant Medical; Visit Provider Student in an Organized Health Care Education/Training Program | DX: M25.311 Other instability, right shoulder (principal); M25.312 Other instability, left shoulder; M19.011 Primary osteoarthritis, right shoulder | CPT/HCPCS: 99214; 99215 ==

== ENCOUNTER 2021-03-07 03:44 | Outpatient (CLI) | payer OTHER, SELFPAY ==
[2021-03-08 23:37] LABS: Anabasine <2.0 ng/mL (<2.0); Cotinine 5.3 ng/mL (<5.0); Nicotine <5.0 ng/mL (<5.0); Nornicotine <2.0 ng/mL (<2.0)
== END 2021-03-07 03:45 | disposition home or self-care (01) ==
LOC: LBO 03:45
PROVIDERS: PCP Physician Assistant Medical; Visit Provider Student in an Organized Health Care Education/Training Program
DX: Z72.0 Tobacco use (principal); Z01.818 Encounter for other preprocedural examination
CPT/HCPCS: 36415; 80323

== ENCOUNTER 2021-03-09 03:06 | Outpatient (CLI) | payer OTHER, SELFPAY ==
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
[2021-03-09 12:28] LABS: Source Nasal/Nares
[2021-03-09 14:21] LABS: COVID-19 PCR Negative (Negative)
== END 2021-03-09 03:07 | disposition home or self-care (01) ==
PROVIDERS: PCP Physician Assistant Medical; Visit Provider Student in an Organized Health Care Education/Training Program
DX: Z20.822 Contact with and (suspected) exposure to COVID-19 (principal); Z01.818 Encounter for other preprocedural examination
CPT/HCPCS: 87635

== ENCOUNTER 2021-03-11 06:01 | Day surgery (SDC) | payer OTHER, SELFPAY ==
[2021-03-11] VITALS (10 sets, daily range): BP systolic 106–127; BP diastolic 65–83; PULSE 62–77; RESP 13–16; TEMP 36.1–36.8; O2SAT 95–99; BMI 29.7
[2021-03-11] MEDS: Lactated Ringers 1,000 ML 100 ML IV (06:46)
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
[2021-03-11] MEDS: ceFAZolin 2 GM/50 ML BAG IVPB (07:33)
--- NOTE | 2021-03-11 08:20 | W.ANESNERVE ---
Nerve Block Single Injection Procedure Date and Time Date Performed: 03/11/21 Procedure Start: 07:18 Location Where Procedure Performed Procedure Location: PACU Reason Performed: Postoperative Analgesia Requesting Provider: Scotty Faustin Timeout Performed Timeout Performed: Yes Monitoring Used ECG, Blood Pressure and SpO2 Sterility Sterility: Hand Hygiene, Surgical Cap, Surgical Mask, Sterile Gloves and Chlorhexidine Sedation Given During Procedure Sedation Given (Indicate Dose Given): Versed IV Dose:: 2mg Patient Mental Status Patient Mental Status: Awake Nerve Block 1st Nerve Block: Laterality: Right Block Type: Interscalene Needle / Catheter Used: 80mm SonoPlex II Local Anesthetic Bolus (Indicate Dose Given): Lidocaine used for local infiltration of skin, Injected in 3-5ml increments after negative blood aspiration, Bupivacaine 0.5% Dose:: 10ml and Exparel Dose:: 10ml Additives (Indicate Dose Given): None Ultrasound: Sterile probe cover and gel used Ultrasound Image Saved?: Yes Nerve Stimulator: Not Used Paresthesia: Right (Started injecting local, patient had pressure sensation, then moved arm and had transient paresthesia down right arm lasting a few seconds) Paresthesia Duration: Transient Procedure Tolerated: No Complications Procedure Outcome: Successful Performed By: Oziel Boss
--- NOTE | 2021-03-11 09:08 | W.PM.OP ---
Date of service: 03/11/21 Time of Service: 08:00 Operative Note Operative Note DATE OF PROCEDURE: 03/11/21 PRE-OP DIAGNOSIS: Right: 1. Shoulder instability with anterior labral tear 2. LHB tendinopathy 3. Bursitis 4. Impingement 5. AC Joint pain 6. Partial rotator cuff tear POST-OP DIAGNOSIS: same PROCEDURE: Right: 1. Arthroscopic biceps tenodesis, CPT# 20998. This involved arthroscopically suturing and reattaching the long head of the biceps tendon to the proximal humerus at the superior margin of the bicipital groove with a screw at the correct tension. 2. Labral repair, CPT #38911. This involved arthroscopically suturing and reattaching the anterior labrum with appropriate amount of capsular tissue to the glenoid with a suture anchor. 3. Extensive debridement, CPT# 58224. This involved using arthroscopic hand instruments, power instruments, and radiofrequency instruments to release to release the long head of the biceps tendon and debride areas of labral tearing, synovitis, and chondromalacia about the biceps groove within the glenohumeral joint anteriorly, superiorly and posteriorly. 4. Subacromial decompression with partial acromioplasty, CPT# 69813. This involved using arthroscopic power instruments and a radiofrequency wand to complete a bursectomy and remove bone spurs on the undersurface of the acromion. 5. Arthroscopic distal clavicle excision, CPT# 19508. This involved arthroscopically exposing the underside of the acromioclavicular joint, smoothing out bone spurs, and using a lizzette to remove approximately 5 mm of the distal clavicle so there was no bone left engaging the acromion. The respiratory therapist assistant was medically required in order to help assist in techniques above, which require positioning the arm, holding the arthroscope, and manipulating multiple instruments and sutures at the same time. This cannot be done without the help of an experienced respiratory therapist assistant. SURGEON: Scotty Faustin BLIND STITCH MACHINE OPERATOR: Nanci John ANESTHESIA TYPE: General LMA/ETT and Primary Nerve Block Refer to Anesthesia Record ESTIMATED BLOOD LOSS: 15 PATHOLOGY: none sent COMPLICATIONS: None Patient was transported to: PACU Patient's condition: stable Implants: Arthrex: 4.75mm SwiveLock x 1 and 2.9 mm PushLock x1 Indications: The patient was diagnosed with the above conditions and appropriately indicated for surgical intervention. Please see complete medical record for details. Findings: Exam under anesthesia: Full range of motion with mild multidirectional hypermobility. No crepitation. No true instability. Glenohumeral joint: Anterior labral tear with adjacent synovitis and labral fraying. Long head biceps tendon injection with mild amount of superior labral fraying. Anterior and posterior mild synovitis. Mild chondromalacia about the bicipital groove. Partial articular supraspinatus and infraspinatus rotator cuff tearing from anterior to posterior but only involving a minor amount of the thickness of the rotator cuff and footprint may be 5%. Subacromial space: Significant bursitis. Minimal undersurface acromial bone spur. Significant inferiorly impinging distal clavicle on acromion. Intact bursal rotator cuff without significant inflammation anywhere. Procedure Description: In the operating room, general anesthesia was induced. Bilateral shoulders were examined. The patient was positioned in the beachchair position. All bony prominences were well-padded. Preoperative antibiotics were administered. The shoulder was prepped and draped in the usual sterile fashion. The correct patient, procedure, and side of the procedure were all verified prior to incision. Starting through the posterior portal a standard complete diagnostic arthroscopy was performed of the glenohumeral joint including inspection of the long head of the biceps, anterior and superior labrum, subscapularis tendon, supraspinatus and infraspinatus tendons, and axillary recess. The glenoid and humeral head cartilage as well as the posterior labrum were inspected from an anterior viewing portal. Significant findings and interventions noted above. A low anterior portal was established over the subscapularis and a rigid 7 mm cannula inserted with trajectory for planned anterior labral repair. A higher anterior portal was established similarly for planned arthroscopic biceps tenodesis. An all-arthroscopic suprapectoral biceps tenodesis was performed through the higher anterior portal using a Loop N Tack method with a SutureTape FiberLink cinched around and through the tendon. The biceps was tenotomized from the labrum and fixated with a suture anchor at the superior margin of the bicipital groove. The lower anterior portal was used to prepare the anterior labrum and glenoid for healing using mechanical shaver and wraps. Reduction and appropriate capsular tissue incorporation was confirmed using probe. The 90 degree lasso was then used to pass a suture tape fiber link around the inferior zone of labral tear incorporating a modest amount of capsular tissue. The link was secured in a luggage tag fashion. At the central aspect of the zone of injury slightly higher, the eccentric guide was used to drill for a push lock anchor. The suture brought through a push lock anchor, appropriate tension applied, and the suture anchor secured to the anterior glenoid. The repair was probed found to be secure. No additional suture anchors are needed. The capsular plication did not limit external rotation past 60 degrees, but improved anterior translation. The anterior glenohumeral cannulas were removed. Starting through the posterior portal, the arthroscope was directed into the subacromial space. The higher anterior portal was redirected in the subacromial space. A combination of power instruments and a radiofrequency ablator were used to debride bursitis anteriorly, posteriorly, and laterally as well as expose and smooth minimal bone spurring on the undersurface of the acromion. The coracoacromial ligament was preserved. The bursectomy was completed viewing anteriorly and working from posteriorly and the rotator cuff was thoroughly inspected with findings noted above. The AC joint was localized by placing a needle from superior into the medial aspect of the subacromial space. The anterior portal was redirected towards the undersurface of the AC joint. A shaver and electrocautery device were used to clear soft tissue from the undersurface of the AC joint. A mechanical shaver was then used to remove the inferior overhang of the distal clavicle as well as adjacent acromion and remove a few millimeters of bone of the distal clavicle so there is no engaging bone left behind. The shoulder was drained of arthroscopic fluid. All portal sites were copiously irrigated. These incisions were closed using 3-0 Monocryl in a buried fashion and then covered with Mastisol, Steri-Strips, Xeroform, dry gauze, and ABDs. The dressings were covered and secured with Medipore tape. The operative extremity was placed into a sling for immobilization. The patient awoke from anesthesia without complication and was transferred to the recovery room in a stable condition.
[2021-03-11] MEDS: EPINEPHrine 30 MG/30 ML VIAL (09:43)
[2021-03-11] MEDS: ACETAMINOPHEN 1,000 MG/100 ML BTL 400 MG IVPB (10:16)
--- NOTE | 2021-03-11 10:16 | PDOC.DSDIS_ITS ---
Discharge Plan Disposition Patient Disposition: HOME Condition: Stable Discharge Details Reason For Visit: Right shoulder surgery Attending Provider: Scotty Faustin Primary Care Provider: Jo Shrestha Home Meds and New Rx's Prescriptions: New naproxen-esomeprazole [Vimovo] 500-20 mg tablet,IR,delayed rel,biphasic 1 tab PO BID 7 Days Qty: 14 RF: 0 oxycodone 5 mg tablet 5 - 10 mg PO Q4H PRN (Reason: moderate to severe pain) Qty: 16 RF: 0 Continued trazodone 100 mg Tablet 100 mg PO HS PRN PRNRF: 0 ondansetron 4 mg Tablet,Disintegrating 4 mg PO Q8H PRNRF: 0 topiramate 100 mg Tablet 200 mg PO BID RF: 0 duloxetine [Cymbalta] 60 mg Capsule,Delayed Release(Dr/Ec) 60 mg PO DAILY RF: 0 Flintstones Complete Tablet,Chewable 1 tab PO BID RF: 0 alisa citrate-mag ox,aspart-D3 250 mg-125 mg- 200 unit Wafer 1 wafer PO BID RF: 0 Benefiber Chewable 3 tab PO DAILY RF: 0 oxycodone 5 mg tablet 5 mg PO TID PRNRF: 0 lurasidone 40 mg tablet 40 mg PO HS RF: 0 bupropion HCl [Wellbutrin SR] 200 mg tablet sustained-release 12 hr 300 mg PO DAILY RF: 0 albuterol sulfate [ProAir HFA] 8.5 GM HFA aerosol inhaler 2 puff Inhalation Q4H PRN PRNRF: 0 lansoprazole 30 mg capsule,delayed release(DR/EC) 30 mg PO DAILY RF: 0 fexofenadine [Pina Allergy] 180 mg tablet 180 mg PO DAILY RF: 0 baclofen 10 mg tablet 20 mg PO BID PRNRF: 0 cyanocobalamin (vitamin B-12) [Vitamin B-12] 500 MCG tablet 1 tab PO DAILY RF: 0 Discharge Instructions Additional Instructions: Surgery: Shoulder arthroscopy with anterior labral repair, arthroscopic biceps tenodesis, extensive debridement, subacromial decompression, and distal clavicle excision. Activity: You should keep your arm at your side in a neutral position at all times except for physical therapy. Do not try to lift or raise your arm using your own muscles. You should use the sling whenever you are out of the house for 6 weeks. You may have to adjust the abduction pillow or remove it for comfort. At home it is best to remove the sling and rest the arm on a pillow at your side or support the operative side with your other hand. You may allow the arm to dangle at your side. A physical therapy prescription will be sent electronically to begin in 2-3 weeks. Passive-only range of motion for 6 weeks. No external rotation for 4 weeks. Maximal forward elevation 90 degrees for 4 weeks. Prescriptions: Naproxen 250 mg take 1-2 every 12 hours as needed for moderate pain and swelling with a meal for up to 1 week Omeprazole 20 mg take 1 every day for gastric protection while using Naproxen Oxycodone 5 mg take 1-2 every 4-6 hours as needed for severe pain You may use [id number] Tylenol (acetaminophen) as needed for mild pain. These pain medications may be taken all at once or in different combinations as needed. Also, recommend Colace (docusate) as a stool softener as surgery and pain medicine cause constipation. Dressings: Remove shoulder bandage after 3 days. Leave the sticky Steri-Strips in place until they fall off or remove them after you shower. Cover the incisions with Band-Aids or leave them open to air. You may shower after 5 days. Follow-up: 10-14 days with an orthopedic physician orthopaedic physician assistant and 6-[address] Faustin You may take off the leg compression stockings this evening at home. You may also leave them on a few days longer if you have a history of leg swelling or edema. Let us know right away if you develop any redness, drainage, fevers, chest pain, or trouble breathing. Do not drink alcohol or drive for at least 24 hours after anesthesia. Please call the office during business hours with any questions or concerns. Referrals: Scotty Faustin MD [ [facility] STAFF PHYSICIAN] - Discharge Orders Discharge Orders: Discharge Order (Routine); Ordered 03/11/21 Ordered By: Scotty Faustin DS: Diagnosis Discharge Diagnosis (1) Arthritis of right acromioclavicular joint: Status: Acute (2) Impingement syndrome of both shoulders: Status: Acute (3) Instability of both shoulder joints: Status: Acute (4) Bilateral shoulder bursitis: Status: Acute (5) Tendinitis of long head of biceps brachii of both shoulders: Status: Acute
[2021-03-11] MEDS: fentaNYL 100 MCG/2 ML VIAL IVP (10:33)
--- NOTE | 2021-03-11 11:16 | W.ANESPOSTOP ---
Postoperative Evaluation Date, Time and Location Date Performed: 03/11/21 Time Performed: 11:17 Patient Location: Day Surgery Unit Vital Signs Most Recent Imported Vital Signs: Most Recent Vital Signs Temp Pulse Resp BP Pulse Ox 36.4 C L 65 16 117/80 95 03/11/21 11:05 03/11/21 11:05 03/11/21 11:05 03/11/21 11:05 03/11/21 11:05 Pain Score Most Recent Pain Score: Most Recent Pain Score Pain Level 7 03/11/21 11:05 Assessment Mental Status: Awake (Alert & Oriented to Patient Baseline) Airway and Respiratory Function: Patent airway with normal (patient baseline) respiratory exam Cardiovascular Function: Hemodynamically Stable Hydration Status: Adequately Hydrated Nausea & Vomiting: No Nausea or Vomiting Pain: Pain is tolerable per patient Peripheral Nerve Block: Regional nerve block not resolved at time of post operative discharge Postoperative Comments:: Pt. appears comfortable and able to hold ocnversation. Vital signs are not suggestive of a 7/10 pain. We will give her an oxycodone.
[2021-03-11] MEDS: oxyCODONE 5 MG TAB PO (11:35)
== END 2021-03-11 12:32 | disposition home or self-care (01) ==
PROVIDERS: PCP Physician Assistant Medical; Visit Provider Student in an Organized Health Care Education/Training Program
PROC: (CPT 29805; principal; 2021-03-11 07:30)
DX: M19.011 Primary osteoarthritis, right shoulder (principal); M75.41 Impingement syndrome of right shoulder; M25.311 Other instability, right shoulder; M75.51 Bursitis of right shoulder; M75.21 Bicipital tendinitis, right shoulder
CPT/HCPCS: 29806; 29828; 29826; 29823; 29824; J0131; J0690; J1100; J1885; J2250; J2405; J2704; J3010

== ENCOUNTER → 2021-03-22 07:53 | Outpatient (BNVA) | payer OTHER, SELFPAY | PROVIDERS: PCP Physician Assistant Medical; Referring Provider Physician Assistant Medical | DX: Z47.89 Encounter for other orthopedic aftercare (principal); M19.011 Primary osteoarthritis, right shoulder; F17.210 Nicotine dependence, cigarettes, uncomplicated ==

== ENCOUNTER → 2021-04-20 08:36 | Outpatient (BNVA) | payer OTHER, SELFPAY | PROVIDERS: PCP Physician Assistant Medical; Referring Provider Physician Assistant Medical; Visit Provider Student in an Organized Health Care Education/Training Program | DX: Z47.89 Encounter for other orthopedic aftercare (principal) ==

== ENCOUNTER 2021-04-25 09:16 | Outpatient (REF) | payer MEDICARE, SELFPAY | END 2021-04-25 09:17 | disposition home or self-care (01) | LOC: NCHCN 09:16 | PROVIDERS: PCP Physician Assistant Medical; Visit Provider Physician Assistant Medical | DX: N93.8 Other specified abnormal uterine and vaginal bleeding (principal) | CPT/HCPCS: 87480; 87510; 87660 ==

== ENCOUNTER 2021-05-31 13:56 | Outpatient (CLI) | payer MEDICARE, SELFPAY ==
--- NOTE | 2021-05-31 13:00 | DI.RAD_ITS ---
Exam(s) XR SHOULDER LT COMPLETE 2+V EXAM: XR SHOULDER LT COMPLETE 2+V CLINICAL HISTORY: left shoulder pain TECHNIQUE: COMPARISON: CR XR SHOULDER LT COMPLETE 2+V from 12/01/2020 FINDINGS: Two views were obtained. Cartilaginous joint space of the glenohumeral joint appears fairly well donis ntained. No bony or soft tissue abnormality seen. IMPRESSION: RADIATION DOSE DELIVERED: Total DLP
== END 2021-05-31 13:57 | disposition home or self-care (01) ==
LOC: DIORS 13:56
PROVIDERS: PCP Physician Assistant Medical; Referring Provider Physician Assistant Medical; Visit Provider Student in an Organized Health Care Education/Training Program
DX: M25.512 Pain in left shoulder (principal); S49.82XA Other specified injuries of left shoulder and upper arm, initial encounter; W01.0XXA Fall on same level from slipping, tripping and stumbling without subsequent striking against object, initial encounter
CPT/HCPCS: 99213; 73030

== ENCOUNTER 2021-06-22 11:41 | Outpatient (REF) | payer MEDICARE, SELFPAY ==
--- NOTE | 2021-06-22 11:10 | PAPFT_PTH ---
PATIENT: Crys Giraldo LOC: [facility] U#:[id number] AGE/SX: 41/F ROOM: RE06/22/[address]: Kizzy Mcbride : 1980 BED: DIS: 06/22/2021 SPEC #: [id number] RECD: 06/22/21 12:44 STATUS: KATTY REQ #: [id number] TRACEY: 06/22/21 11:[address]: Kizzy Mcbride [facility] Cytology RECD BY: Elke Kumar ENTERED: 06/22/21 12:45 SP TYPE: PAPFT OTHR DR: Jo Shrestha Tissues: 1 - CX/ENDOCX FOR PAP SMEARS Procedures: PAP THIN PREP/UVM Screening HPV DNA PROBE Comments: [id number]
== END 2021-06-22 11:42 | disposition home or self-care (01) ==
LOC: LBN 11:41
PROVIDERS: PCP Physician Assistant Medical; Visit Provider Obstetrics & Gynecology Gynecology
DX: Z12.4 Encounter for screening for malignant neoplasm of cervix (principal); Z11.51 Encounter for screening for human papillomavirus (HPV); Z01.419 Encounter for gynecological examination (general) (routine) without abnormal findings
CPT/HCPCS: 88142; 87624

== ENCOUNTER → 2021-07-12 08:38 | Outpatient (BNVA) | payer MEDICARE, SELFPAY | PROVIDERS: PCP Physician Assistant Medical; Referring Provider Physician Assistant Medical; Visit Provider Student in an Organized Health Care Education/Training Program | DX: M75.22 Bicipital tendinitis, left shoulder (principal); M75.52 Bursitis of left shoulder; M25.312 Other instability, left shoulder; M75.42 Impingement syndrome of left shoulder | CPT/HCPCS: 99214 ==

== ENCOUNTER 2021-07-19 01:37 | Outpatient (CLI) | payer MEDICARE, SELFPAY ==
[2021-07-19 10:28] LABS: Source Nasal/Nares
[2021-07-19 13:07] LABS: COVID-19 PCR Negative (Negative)
== END 2021-07-19 01:38 | disposition home or self-care (01) ==
LOC: LBO 01:38
PROVIDERS: PCP Physician Assistant Medical; Visit Provider Student in an Organized Health Care Education/Training Program
DX: Z20.822 Contact with and (suspected) exposure to COVID-19 (principal); Z01.818 Encounter for other preprocedural examination
CPT/HCPCS: 87635

== ENCOUNTER 2021-07-21 09:26 | Day surgery (SDC) | payer MEDICARE, SELFPAY ==
[2021-07-21] VITALS (9 sets, daily range): BP systolic 117–136; BP diastolic 84–93; PULSE 61–77; RESP 15–18; TEMP 36.3–37.4; O2SAT 98–100; BMI 31.6
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
[2021-07-21] MEDS: Lactated Ringers 1,000 ML 100 ML IV (10:28)
--- NOTE | 2021-07-21 11:06 | W.ANESNERVE ---
Nerve Block Single Injection Procedure Date and Time Date Performed: 07/21/21 Procedure Start: 10:48 Location Where Procedure Performed Procedure Location: Day Surgery Unit Reason Performed: Postoperative Analgesia Requesting Provider: Scotty Faustin Timeout Performed Timeout Performed: Yes Monitoring Used ECG, Blood Pressure and SpO2 Sterility Sterility: Hand Hygiene, Surgical Cap, Surgical Mask and Sterile Gloves Sedation Given During Procedure Sedation Given (Indicate Dose Given): No Sedation given, Versed IV Dose:: 2 mg and Ketamine IV Dose:: 10 mg Patient Mental Status Patient Mental Status: Sedate with meaningful communication Nerve Block 1st Nerve Block: Laterality: Left Block Type: Interscalene Needle / Catheter Used: 100mm SonoPlex II Local Anesthetic Bolus (Indicate Dose Given): Lidocaine used for local infiltration of skin, Injected in 3-5ml increments after negative blood aspiration, Bupivacaine 0.5% Dose:: 15 mL and Exparel Dose:: 7 mL Additives (Indicate Dose Given): None Ultrasound: Sterile probe cover and gel used Ultrasound Image Saved?: Yes Nerve Stimulator: Not Used Paresthesia: None Procedure Tolerated: No Complications Procedure Outcome: Successful Performed By: Dane Eng Other (not listed above): damaris becker 2nd Nerve Block: Laterality: Left Block Type: Superficial Cervical Plexus Needle / Catheter Used: 100mm SonoPlex II Local Anesthetic Bolus (Indicate Dose Given): Lidocaine used for local infiltration of skin, Injected in 3-5ml increments after negative blood aspiration, Bupivacaine 0.5% Dose:: 4 mL and Exparel Dose:: 3 mL Additives (Indicate Dose Given): None Ultrasound: Sterile probe cover and gel used Ultrasound Image Saved?: Yes Nerve Stimulator: Not Used Paresthesia: None Procedure Tolerated: No Complications Procedure Outcome: Successful Performed By: Dane Eng Other (not listed above): damaris hernandez.
[2021-07-21] MEDS: ceFAZolin 2 GM/50 ML BAG IVPB (11:31)
[2021-07-21] MEDS: EPINEPHrine 30 MG/30 ML VIAL (12:30)
--- NOTE | 2021-07-21 13:14 | W.PM.DSUDISC ---
Discharge Plan Disposition Patient Disposition: HOME Condition: Stable Discharge Details Reason For Visit: Left shoulder surgery Attending Provider: Scotty Faustin Primary Care Provider: Jo Shrestha Home Meds and New Rx's Prescriptions: New aspirin 81 mg tablet,delayed release (DR/EC) 81 mg PO DAILY 14 Days Qty: 14 RF: 0 oxycodone 5 mg tablet 5 - 10 mg PO Q4H PRN (Reason: moderate to severe pain) Qty: 18 RF: 0 naproxen 250 mg tablet 250 - 500 mg PO BID PRNQty: 40 RF: 0 Continued trazodone 100 mg Tablet 100 mg PO HS PRN PRNRF: 0 ondansetron 4 mg Tablet,Disintegrating 4 mg PO Q8H PRNRF: 0 topiramate 100 mg Tablet 200 mg PO BID RF: 0 duloxetine [Cymbalta] 60 mg Capsule,Delayed Release(Dr/Ec) 60 mg PO DAILY RF: 0 Flintstones Complete Tablet,Chewable 1 tab PO BID RF: 0 alisa citrate-mag ox,aspart-D3 250 mg-125 mg- 200 unit Wafer 1 wafer PO BID RF: 0 Benefiber Chewable 3 tab PO DAILY RF: 0 oxycodone 5 mg tablet 5 mg PO TID PRNRF: 0 lurasidone 40 mg tablet 40 mg PO HS RF: 0 clonidine HCl 0.1 mg tablet 0.1 mg PO QHS Qty: 60 RF: 4 bupropion HCl [Wellbutrin SR] 200 mg tablet sustained-release 12 hr 300 mg PO DAILY RF: 0 albuterol sulfate [ProAir HFA] 8.5 GM HFA aerosol inhaler 2 puff Inhalation Q4H PRN PRNRF: 0 lansoprazole 30 mg capsule,delayed release(DR/EC) 30 mg PO DAILY RF: 0 fexofenadine [Pina Allergy] 180 mg tablet 180 mg PO DAILY RF: 0 baclofen 10 mg tablet 20 mg PO BID PRNRF: 0 cyanocobalamin (vitamin B-12) [Vitamin B-12] 500 MCG tablet 1 tab PO DAILY RF: 0 Discharge Instructions Additional Instructions: Surgery: Left shoulder arthroscopy with biceps tenodesis, extensive debridement, subacromial decompression, and distal clavicle excision. Activity: You should gradually increase range of motion motion and use of your shoulder. Please perform daily stretching exercises. You may use your shoulder for all regular activities. Avoid heavy lifting, reaching overhead, and lifting away from body for approximately 6 to 8 weeks. You may use the sling whenever you are out of the house for a few weeks. At home it is best to remove the sling and rest the arm on a pillow at your side or support the operative side with your other hand. A physical therapy prescription will be sent electronically to start in about 2 weeks. Prescriptions: Aspirin 81 mg take 1 daily to prevent a blood clot for 2 weeks Naproxen 250 mg take 1-2 every 12 hours with a meal as needed for moderate pain Oxycodone 5 mg take 1-2 every 4-6 hours as needed for severe pain You may use [id number] Tylenol (acetaminophen) as needed for mild pain. These pain medications may be taken all at once or in different combinations as needed. Also, recommend Colace (docusate) as a stool softener as surgery and pain medicine cause constipation. Dressings: Remove shoulder bandage after 3 days. Leave the sticky Steri-Strips in place until they fall off or remove them after you shower. Cover the incisions with Band-Aids or leave them open to air. You may shower after 5 days. Follow-up: 10-[address] Faustin You may take off the leg compression stockings this evening at home. You may also leave them on a few days longer if you have a history of leg swelling or edema. Let us know right away if you develop any redness, drainage, fevers, chest pain, or trouble breathing. Do not drink alcohol or drive for at least 24 hours after anesthesia. Please call the office during business hours with any questions or concerns. Referrals: Scotty Faustin MD [ [facility]] - Discharge Orders Discharge Orders: Discharge Order (Routine); Ordered 07/21/21 Ordered By: Scotty Faustin DS: Diagnosis Discharge Diagnosis (1) Bilateral shoulder bursitis: Status: Acute (2) Impingement syndrome of both shoulders: Status: Acute (3) Tendinitis of long head of biceps brachii of both shoulders: Status: Acute (4) Pain in left acromioclavicular joint: Status: Acute
--- NOTE | 2021-07-21 14:52 | W.PM.OP ---
Date of service: 07/21/21 Time of Service: 13:00 Operative Note Operative Note DATE OF PROCEDURE: 07/21/21 PRE-OP DIAGNOSIS: Left: 1. Rotator cuff tear 2. LHB tendinopathy 3. Bursitis 4. Impingement POST-OP DIAGNOSIS: same PROCEDURE: Left: 1. Arthroscopic biceps tenodesis, CPT# 33477. This involved arthroscopically suturing and reattaching the long head of the biceps tendon to the proximal humerus at the superior margin of the bicipital groove with a screw at the correct tension. 2. Extensive debridement, CPT# 84197. This involved using arthroscopic hand instruments, power instruments, and radiofrequency instruments to release the long head of the biceps tendon and debride areas of labral tearing, partial articular sided supraspinatus and infraspinatus rotator cuff tearing, synovitis, and chondromalacia about the biceps groove within the glenohumeral joint anteriorly, superiorly and posteriorly. 3. Arthroscopic distal clavicle excision, CPT# 47068. This involved arthroscopically exposing the underside of the acromioclavicular joint, smoothing out bone spurs, and removing approximately 5 mm of the distal clavicle so there was no bone left engaging the acromion. 4. Subacromial decompression, CPT# 79201. This involved using arthroscopic power instruments and a radiofrequency wand to complete a bursectomy. The high school assistant football coach was medically required in order to help assist in techniques above, which require positioning the arm, holding the arthroscope, and manipulating multiple instruments and sutures at the same time. This cannot be done without the help of an experienced high school assistant football coach. SURGEON: Scotty Faustin WIRELESS RETAIL MANAGER: Tacos Chavarria ANESTHESIA TYPE: General LMA/ETT and Primary Nerve Block Refer to Anesthesia Record ESTIMATED BLOOD LOSS: 5 PATHOLOGY: none sent COMPLICATIONS: None Patient was transported to: PACU Patient's condition: stable Implants: Arthrex: 4.75mm SwiveLocks x 1 Indications: The patient was diagnosed with the above conditions and appropriately indicated for surgical intervention. Please see complete medical record for details. Findings: Exam under anesthesia: Full range of motion, no instability Glenohumeral joint: Mild anterior and posterior synovitis. Largely intact long head biceps tendon. Anterior partial labral tear without complete detachment going into disrupted biceps anchor type II SLAP tear. Mild articular sided supraspinatus and infraspinatus rotator cuff tear and fraying without any significant tuberosity footprint disruption. Intact subscapularis. Subacromial space: Moderate bursitis. Moderately impinging endpoint loading distal clavicle acromion joint. No significant acromial bone spur. No bursal rotator cuff tear. Procedure Description: In the operating room, general anesthesia was induced. Bilateral shoulders were examined. The patient was positioned in the beachchair position. All bony prominences were well-padded. Preoperative antibiotics were administered. The shoulder was prepped and draped in the usual sterile fashion. The correct patient, procedure, and side of the procedure were all verified prior to incision. Starting through the posterior portal a standard complete diagnostic arthroscopy was performed of the glenohumeral joint including inspection of the long head of the biceps, anterior and superior labrum, subscapularis tendon, supraspinatus and infraspinatus tendons, and axillary recess. The glenoid and humeral head cartilage as well as the posterior labrum were inspected from an anterior viewing portal. Significant findings and interventions noted above including debridement of frayed nonviable supraspinatus infraspinatus partial tracheal rotator cuff tearing superiorly with the arm in multiple positions as well as working from posterior to anterior and anterior to posterior. There is no skin disruption of either tendon footprint not requiring repair. The anterior labrum was only partially detached versus normal variant did not require labral repair either. Rigid cannula was inserted anteriorly. An all-arthroscopic suprapectoral biceps tenodesis was performed through an anterior portal using a Loop N Tack method with a SutureTape FiberLink cinched around and through the tendon. The biceps was tenotomized from the labrum and fixated with a suture anchor at the superior margin of the bicipital groove. Starting through the posterior portal, the arthroscope was directed into the subacromial space. A lateral 50 yard line lateral portal was omitted. The anterior portal was redirected at the AC joint and subacromial space. A combination of power instruments and a radiofrequency ablator were used to debride bursitis anteriorly, posteriorly, and laterally as well as expose and smooth bone spurring on the undersurface of the acromion. The coracoacromial ligament was preserved. A shaver and electrocautery device were used to clear soft tissue from the undersurface of the AC joint. The distalmost 5 mm of the distal clavicle was then removed and smoothed. Care was taken to ensure that proper amount of bone was removed and there was no engaging bone left behind. The shoulder was drained of arthroscopic fluid. All portal sites were copiously irrigated. These incisions were closed using 3-0 Monocryl in a buried fashion and then covered with Mastisol, Steri-Strips, Xeroform, dry gauze, and ABDs. The dressings were covered and secured with Medipore tape. The operative extremity was placed into a sling for immobilization. The patient awoke from anesthesia without complication and was transferred to the recovery room in a stable condition.
--- NOTE | 2021-07-21 14:59 | W.ANESPOSTOP ---
Postoperative Evaluation Date, Time and Location Date Performed: 07/21/21 Time Performed: 14:59 Patient Location: Day Surgery Unit Vital Signs Most Recent Imported Vital Signs: Most Recent Vital Signs Temp Pulse Resp BP Pulse Ox 36.5 C 61 18 119/92 H 98 07/21/21 13:52 07/21/21 13:52 07/21/21 13:52 07/21/21 13:52 07/21/21 13:52 Pain Score Most Recent Pain Score: Most Recent Pain Score Pain Level 4 07/21/21 13:52 Assessment Mental Status: Awake (Alert & Oriented to Patient Baseline) Airway and Respiratory Function: Patent airway with normal (patient baseline) respiratory exam Cardiovascular Function: Hemodynamically Stable Hydration Status: Adequately Hydrated Nausea & Vomiting: No Nausea or Vomiting Pain: Pain is tolerable per patient Peripheral Nerve Block: Regional nerve block not resolved at time of post operative discharge
== END 2021-07-21 14:57 | disposition home or self-care (01) ==
LOC: SUR 09:26
PROVIDERS: PCP Physician Assistant Medical; Visit Provider Student in an Organized Health Care Education/Training Program
PROC: (CPT 29827; principal; 2021-07-21 11:30)
DX: M75.22 Bicipital tendinitis, left shoulder (principal); M75.42 Impingement syndrome of left shoulder; M75.52 Bursitis of left shoulder
CPT/HCPCS: 29828; 29826; 29824; 29823; 76942; J0690; J1100; J2250; J2405; J2704

== ENCOUNTER → 2021-08-03 11:57 | Outpatient (BNVA) | payer MEDICARE, SELFPAY | PROVIDERS: PCP Physician Assistant Medical; Visit Provider Student in an Organized Health Care Education/Training Program | DX: Z47.89 Encounter for other orthopedic aftercare (principal); M25.512 Pain in left shoulder ==

== ENCOUNTER 2021-08-24 13:12 | Outpatient (CLI) | payer MEDICARE, SELFPAY ==
--- NOTE | 2021-08-24 13:00 | DI.RAD_ITS ---
Exam(s) XR SHOULDER LT COMPLETE 2+V EXAM: XR SHOULDER LT COMPLETE 2+V CLINICAL HISTORY: left shoulder pain. TECHNIQUE: 2D digital imaging was performed. COMPARISON: CR XR SHOULDER LT COMPLETE 2+V from 05/31/2021 FINDINGS: No evidence of fracture or dislocation. No abnormal soft tissue calcifications. No degenerative rohan nges. Bone density normal. No osseous lesions. IMPRESSION: DATA REPOSITORY: RADIATION DOSE DELIVERED:
== END 2021-08-24 13:13 | disposition home or self-care (01) ==
LOC: DIORS 13:13
PROVIDERS: PCP Physician Assistant Medical; Referring Provider Physician Assistant Medical; Visit Provider Physician Assistant
DX: Z98.890 Other specified postprocedural states (principal); Z47.89 Encounter for other orthopedic aftercare; M25.512 Pain in left shoulder
CPT/HCPCS: 73030

== ENCOUNTER 2021-09-07 00:22 | Outpatient (CLI) | payer MEDICARE, SELFPAY ==
--- NOTE | 2021-09-07 09:40 | DI.MRI_ITS ---
Exam(s) MR UPPER EXTREMITY LT WO EXAM: MR UPPER EXTREMITY LT WO CLINICAL HISTORY: BICEPS PAIN,deformity,traumatic rupture,s/p arthroscopy,s46.212a,z98.890 TECHNIQUE: Multiplanar multisequence MRI was performed. COMPARISON: CR XR SHOULDER LT COMPLETE 2+V from 08/24/2021 MR MR UPPER EXTREMITY LT WO from 09/07/2021 FINDINGS: MARROW:There is no evidence of fracture, bone contusion, nor avascular necrosis. There are no signif icant osseous lesions. MUSCLES: There is a tear of the long head biceps tendonwith retraction and edema at the musculotendin ous junction. The short head biceps tendon is intact and remains attached to the coracoid process. Triceps tendon is intact. EXTRAMUSCULAR SOFT TISSUES: No abnormal mass OTHER: None. IMPRESSION: In this patient who has had previous biceps tenodesis there is now a high-grade tear of the long head biceps tendon with retraction of the tendon. DATA REPOSITORY:
--- NOTE | 2021-09-07 10:15 | DI.MRI_ITS ---
Exam(s) MR UPPER JOINT LT WO EXAM: MR UPPER JOINT LT WO CLINICAL HISTORY: Biceps pain,deformity,s/p arthroscopy,traumatic rupture biceps tendon, TECHNIQUE: Multiplanar multisequence MRI of the shoulder was performed. COMPARISON: MR MR UPPER JOINT LT WO from 02/24/2021 CR XR SHOULDER LT COMPLETE 2+V from 08/24/2021 FINDINGS: When compared to the prior study of 02/24/2021 there has been interval surgery. There is an AP orient ated fastener in the humeral head, consistent with biceps tenodesis site. MARROW:There is no evidence of fracture, Hill-Sachs deformity, nor ominous osseous lesions. Some bone edema is seen in the humeral head around the fastener device but without confluent hypointense signa l on T1 images to suggest osteomyelitis. ROTATOR CUFF MECHANISM: AC JOINT/ACROMIUM: There is signal abnormality on both sides of the AC joint now evident as well as w ithin the joint space. There is, however, no widening of the AC joint.. There is no evidence of os acromiale. Supraspinatus: Appearance is unchanged with partial thickness articular side tearing, proximally 7 mi llimeters wide, unchanged. No full-thickness tear. No retraction musculotendinous junction. No muscle atrophy. Infraspinatus: Intact. No evidence of tear nor muscle atrophy. Teres Minor: Intact. No evidence of tear nor muscle atrophy. Subscapularis/anterior cuff: Intact. No abnormal signal at the level of the multipennate insertional fibers. No significant tear nor atrophy. BICEPS TENDON: Tenodesis site at mid humeral head level. Tendon is somewhat thin within the intertube rcular groove LABRUM: There is blunting of the superior labrum at prior biceps attachment site. Also surface irregu larity of this superior labrum posterior to this level is evident. Anterior labrum exhibits some tear ing. Posterior labrum appears intact. Inferior labrum appears intact. Inferior glenohumeral ligament appears intact. There is no evidence of paralabral cyst GLENOHUMERAL JOINT: No prominent joint effusion nor obvious loose intra-articular body. No degenerati ve subarticular cysts. No evidence of capsular tear. The inferior glenohumeral ligament is intact. QUADRILATERAL SPACE: No evidence of mass in the region of the axillary nerve and dorsal circumflex hu meral vessels. Visualized triceps muscle at this level appears unremarkable. IMPRESSION: 1. Compared to the prior MRI scan of February 24, 2021 has been interval surgery which appears to be miriam ps tenodesis. Biceps tendon appears somewhat thin within the intercondylar groove but without promine nt tearing. Some bone edema seen around the fastener device in the humeral head. 2. There has been some decompression at the AC joint level. Small partial thickness articular side si gnal abnormality appears unchanged. There is no full-thickness tear of the supraspinatus tendon altho ugh there does appear to be a sliver of fluid in the subacromial bursa which is most probably an [place] ent of bursitis. Infraspinatus and subscapularis appear intact. 3. Blunting of the superior labrum when compared to the prior study and consistent with probable post surgical changes. There appears to be some tearing of the anterior labrum. No evidence of paralabral cyst. DATA REPOSITORY:
== END 2021-09-07 00:42 ==
PROVIDERS: PCP Physician Assistant Medical; Visit Provider Student in an Organized Health Care Education/Training Program
DX: S46.212A Strain of muscle, fascia and tendon of other parts of biceps, left arm, initial encounter (principal); Z98.890 Other specified postprocedural states; M25.812 Other specified joint disorders, left shoulder
CPT/HCPCS: 73218; 73221

== ENCOUNTER 2021-09-09 02:04 | Outpatient (CLI) | payer MEDICARE, SELFPAY ==
[2021-09-09 16:52] LABS: COVID-19 PCR Negative (Negative)
[2021-09-10 11:42] LABS: Source Nasal/Nares
== END 2021-09-09 02:05 | disposition home or self-care (01) ==
LOC: LBO 02:05
PROVIDERS: PCP Physician Assistant Medical; Visit Provider Student in an Organized Health Care Education/Training Program
DX: Z20.822 Contact with and (suspected) exposure to COVID-19 (principal); Z01.818 Encounter for other preprocedural examination
CPT/HCPCS: 87635

== ENCOUNTER 2021-09-12 07:45 | Day surgery (SDC) | payer MEDICARE, SELFPAY ==
[2021-09-12] VITALS (8 sets, daily range): BP systolic 111–118; BP diastolic 57–85; PULSE 66–88; RESP 16–19; TEMP 36.3–37.1; O2SAT 93–99; BMI 30.9
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
[2021-09-12] MEDS: Lactated Ringers 1,000 ML 100 ML IV (08:43)
--- NOTE | 2021-09-12 09:10 | ROE_ITS ---
Date of service: 09/12/21 Time of Service: 09:10 Operative Note Operative Note DATE OF PROCEDURE: 09/12/21 PRE-OP DIAGNOSIS: Left: 1. Proximal biceps rupture POST-OP DIAGNOSIS: same PROCEDURE: Left: 1. Revision extensive debridement, CPT# 02655. This involved using arthroscopic hand instruments and power instruments to debride areas of anterior and superior synovitis, chondromalacia anteriorly glenoid and humeral head, and remove biceps stump remnant from the arthroscopic tenodesis site as well as remove permanent retained prominent suture material tearing. 2. Open biceps tenodesis, CPT# 41829. This involved reattaching the long head of the biceps tendon to the proximal humerus in the sub-pectoral area of the bicipital groove at the correct tension. The personnel security assistant was medically required in order to help assist in techniques above, which require positioning the arm, holding the arthroscope, and manipulating multiple instruments and sutures at the same time. This cannot be done without the help of an experienced personnel security assistant. SURGEON: Scotty Faustin GAME BIRD FARMER: Bailee Rodriguez Refer to Anesthesia Record ESTIMATED BLOOD LOSS: 10 PATHOLOGY: none sent COMPLICATIONS: None Patient was transported to: PACU Patient's condition: stable Implants: Arthrex: Unicortical Proximal Biceps Tenodesis Button Indications: The patient was diagnosed with the above conditions and appropriately indicated for surgical intervention. Please see complete medical record for details. Findings: Exam under anesthesia: Full range of motion. Palpable retracted biceps tendon with Kunal deformity. Glenohumeral joint and open anterior arm Obvious palpable retracted biceps. Removal of stump remnant with suture material through anterior portal. Stable partial PASTA. Retracted very diminutive scarred long head biceps freed and re- attached sub-pectoral under good tension, restoring normal arm biceps contour. Secure through ROM. Procedure Description: In the operating room, general anesthesia was induced. Bilateral shoulders were examined. The patient was positioned in the beachchair position. All bony prominences were well-padded. Preoperative antibiotics were administered. The shoulder was prepped and draped in the usual sterile fashion. The correct patient, procedure, and side of the procedure were all verified prior to incision. Starting through the posterior portal a standard complete diagnostic arthroscopy was performed of the glenohumeral joint including inspection of the long head of the biceps, anterior and superior labrum, subscapularis tendon, supraspinatus and infraspinatus tendons, and axillary recess. The glenoid and humeral head cartilage as well as the posterior labrum were inspected from an anterior viewing portal. Significant findings and interventions noted above. There is obvious stump remnant of the biceps tendon to the arthroscopic tenodesis site. The screw was appropriately flush anteriorly and intact. The tissue was removed using mechanical shaver and arthroscopic graspers after cutting the permanent suture flush with the screw with arthroscopic scissors. Mild chondromalacia about the site was gently debrided as well as anterior about the glenohumeral joint. Anterior about the subscapularis and superior about the leading edge of the supraspinatus synovitis was gently debrided as well. The biceps tendon stump could not be visualized down the bicipital groove. Decision was made to proceed with open as planned revision fixation for tenodesis. The shoulder was drained of arthroscopic fluid. 20 cc of 0.25% bupivacaine and 1% lidocaine with epinephrine was infiltrated about a 6 cm longitudinal incision at the inferior margin of the pectoralis major localized over the long head of the biceps tendon. Blunt and sharp dissection were used to expose the retracted tendon stump in the anterior lateral arm. The biceps groove was exposed under the pectoralis major tendon. The tendon was brought out of the wound with proper excursion confirmed after releases down and around it scarred retracted location. The tendon was rather diminutive. The correct location for sub-pectoral fixation was localized, prepped with a rasp, and then drilled with a 3.2 mm drill pin in a unicortical fashion. Using a fiber loop suture the tendon was prepped from the musculotendinous junction a few centimeters proximal. The excess tendon was am putated. The free suture ends were then passed through the unicortical button implant. The drill pin was removed and the implant was placed into the humeral intramedullary canal. The button was flipped and the sutures were tensioned bringing the tendon down to bone. Tension and fixation were then tested and found to be appropriate. A free needle was used to pass suture through the tendon and the free ends of the suture were were tied compressing tendon to bone. The wound was copiously irrigated with normal saline. Subcutaneous tissue was closed using 3-0 Monocryl in a buried interrupted fashion. Skin was closed using 3-0 Monocryl in a buried subcuticular running fashion. Skin glue was applied over the incision. Mastisol was applied about the incision. The incision was covered with Telfa, gauze, and covered with a Tegaderm dressing. Both portal sites were copiously irrigated. These incisions were closed using 3-0 Monocryl in a buried fashion and then covered with Mastisol, Steri-Strips, Xeroform, dry gauze, and ABDs. The dressings were covered and secured with Medipore tape. The operative extremity was placed into a sling for immobilization. The patient awoke from anesthesia without complication and was transferred to the recovery room in a stable condition.
[2021-09-12] MEDS: ceFAZolin 2 GM/50 ML BAG IVPB (09:20)
--- NOTE | 2021-09-12 09:45 | W.ANESNERVE ---
Nerve Block Single Injection Procedure Date and Time Date Performed: 09/12/21 Procedure Start: 08:59 Location Where Procedure Performed Procedure Location: Day Surgery Unit Reason Performed: Postoperative Analgesia Requesting Provider: Scotty Faustin Timeout Performed Timeout Performed: Yes Monitoring Used ECG, Blood Pressure and SpO2 Sterility Sterility: Hand Hygiene, Surgical Cap, Surgical Mask, Sterile Gloves and Chlorhexidine Sedation Given During Procedure Sedation Given (Indicate Dose Given): Versed IV Dose:: 2 mg Patient Mental Status Patient Mental Status: Awake Nerve Block 1st Nerve Block: Laterality: Left Block Type: Interscalene Needle / Catheter Used: 100mm SonoPlex II Local Anesthetic Bolus (Indicate Dose Given): Lidocaine used for local infiltration of skin, Injected in 3-5ml increments after negative blood aspiration, Bupivacaine 0.5% Dose:: 15 mL and Exparel Dose:: 10 mL Additives (Indicate Dose Given): None Ultrasound: Sterile probe cover and gel used Ultrasound Image Saved?: Yes Nerve Stimulator: Not Used Paresthesia: Left (not real parestheisa, stated pressure with needle movement, needle pulled back with resolution. ) Paresthesia Duration: Transient Procedure Tolerated: No Complications Procedure Outcome: Successful Performed By: Dane Eng
[2021-09-12] MEDS: Bupivacaine 0.25% Pres-Free 30 ML VIAL (09:46)
[2021-09-12] MEDS: EPINEPHrine 30 MG/30 ML VIAL (09:46)
--- NOTE | 2021-09-12 11:16 | W.PM.DSUDISC ---
Discharge Plan Disposition Patient Disposition: HOME Condition: Stable Discharge Details Reason For Visit: Left proximal biceps surgery Attending Provider: Scotty Faustin Primary Care Provider: Jo Shrestha Home Meds and New Rx's Prescriptions: New naproxen 250 mg tablet 250 - 500 mg PO BID PRNQty: 40 0RF Rx Instructions: take with a meal oxycodone 5 mg tablet 5 - 10 mg PO Q4H MDD 30 mg PRN (Reason: moderate to severe pain) Qty: 18 0RF Continued trazodone 100 mg Tablet 50 mg PO HS PRN PRN0RF ondansetron 4 mg Tablet,Disintegrating 4 mg PO Q8H PRN0RF topiramate 100 mg Tablet 200 mg PO BID 0RF duloxetine [Cymbalta] 60 mg Capsule,Delayed Release(Dr/Ec) 60 mg PO DAILY 0RF Flintstones Complete Tablet,Chewable 1 tab PO BID 0RF alisa citrate-mag ox,aspart-D3 250 mg-125 mg- 200 unit Wafer 1 wafer PO BID 0RF Benefiber Chewable 3 tab PO DAILY 0RF oxycodone 5 mg tablet 5 mg PO TID PRN0RF lurasidone 40 mg tablet 40 mg PO HS 0RF Rx Instructions: must administer with food (at least 350 calories) bupropion HCl [Wellbutrin SR] 200 mg tablet sustained-release 12 hr 300 mg PO DAILY 0RF clonidine HCl 0.2 mg tablet 0.2 mg PO QHS Qty: 60 3RF albuterol sulfate [ProAir HFA] 8.5 GM HFA aerosol inhaler 2 puff Inhalation Q4H PRN PRN0RF lansoprazole 30 mg capsule,delayed release(DR/EC) 30 mg PO DAILY 0RF naproxen 250 mg tablet 250 - 500 mg PO BID PRNQty: 40 0RF Rx Instructions: take with a meal acetylcysteine [NAC] 600 mg Capsule 1,200 mg PO DAILY 0RF baclofen 10 mg tablet 20 mg PO BID PRN0RF cyanocobalamin (vitamin B-12) [Vitamin B-12] 500 MCG tablet 1 tab PO DAILY 0RF Discharge Instructions Additional Instructions: Surgery: Left shoulder arthroscopy with revision extensive debridement and open biceps tenodesis Activity: You should gradually increase range of motion motion and use of your shoulder.? Please perform gentle daily stretching exercises.? You may use your shoulder for all regular activities.? Avoid heavy lifting, reaching overhead, and lifting away from body for approximately 6 to 8 weeks.? You may use the sling whenever you are out of the house for a few weeks.? At home it is best to remove the sling and rest the arm on a pillow at your side or support the operative side with your other hand.? A physical therapy prescription will be sent electronically to resume in about 3 weeks. Prescriptions: Aspirin 81 mg take 1 daily to prevent a blood clot for 2 weeks Naproxen 250 mg take 1-2 every 12 hours with a meal as needed for moderate pain (do not take at same time as other NSAIDs) Oxycodone 5 mg take 1-2 every 4-6 hours as needed for severe pain You may use uapq-kro-idfrqda Tylenol (acetaminophen) as needed for mild pain. These pain medications may be taken all at once or in different combinations as needed. Also, recommend Colace (docusate) as a stool softener as surgery and pain medicine cause constipation. Dressings: Remove shoulder bandage after 3 days.? Leave the sticky Steri-Strips in place until they fall off or remove them after you shower.? Cover the incisions with Band-Aids or leave them open to air. The biceps bandage (inside upper arm) is glued on separately. You may leave this one on a few days longer if it is difficult to remove. There is also glue underneath this bandage that can be left in place until it peels off. You may shower after 5 days. Follow-up: 10-[address] Faustin You may take off the leg compression stockings this evening at home.? You may also leave them on a few days longer if you have a history of leg swelling or edema.? Let us know right away if you develop any redness, drainage, fevers, chest pain, or trouble breathing.? Do not drink alcohol or drive for at least 24 hours after anesthesia. Please call the office during business hours with any questions or concerns. Referrals: Scotty Faustin MD [ [facility] STAFF PHYSICIAN] - Discharge Orders Discharge Orders: Discharge Order (Routine); Ordered 09/12/21 Ordered By: Scotty Faustin DS: Diagnosis Discharge Diagnosis (1) Traumatic rupture of left proximal biceps tendon: Status: Acute (2) S/P arthroscopy of left shoulder: Status: Acute
[2021-09-12] MEDS: oxyCODONE 5 MG TAB PO (12:20)
--- NOTE | 2021-09-12 13:01 | W.ANESPOSTOP ---
Postoperative Evaluation Date, Time and Location Date Performed: 09/12/21 Time Performed: 13:02 Patient Location: Day Surgery Unit Vital Signs Most Recent Imported Vital Signs: Most Recent Vital Signs Temp Pulse Resp BP Pulse Ox 36.5 C 88 16 111/75 93 09/12/21 12:16 09/12/21 12:16 09/12/21 12:16 09/12/21 12:16 09/12/21 12:16 Pain Score Most Recent Pain Score: Most Recent Pain Score Pain Level 5 09/12/21 12:16 Assessment Mental Status: Awake (Alert & Oriented to Patient Baseline) Airway and Respiratory Function: Patent airway with normal (patient baseline) respiratory exam Cardiovascular Function: Hemodynamically Stable Hydration Status: Adequately Hydrated Nausea & Vomiting: No Nausea or Vomiting Pain: Pt. Denies Any Pain Peripheral Nerve Block: Regional nerve block not resolved at time of post operative discharge
== END 2021-09-12 13:20 | disposition home or self-care (01) ==
PROVIDERS: PCP Physician Assistant Medical; Visit Provider Student in an Organized Health Care Education/Training Program
PROC: (CPT 29805; principal; 2021-09-12 09:00)
DX: S46.112A Strain of muscle, fascia and tendon of long head of biceps, left arm, initial encounter (principal); X58.XXXA Exposure to other specified factors, initial encounter; F17.210 Nicotine dependence, cigarettes, uncomplicated; M79.7 Fibromyalgia; F41.1 Generalized anxiety disorder; K21.9 Gastro-esophageal reflux disease without esophagitis; G89.18 Other acute postprocedural pain
CPT/HCPCS: 23430; 29823; 76942; J0690; J1100; J2250; J2405; J2704

== ENCOUNTER → 2021-09-21 10:34 | Outpatient (BNVA) | payer MEDICARE, SELFPAY | PROVIDERS: PCP Physician Assistant Medical; Referring Provider Physician Assistant Medical; Visit Provider Student in an Organized Health Care Education/Training Program | DX: S46.212D Strain of muscle, fascia and tendon of other parts of biceps, left arm, subsequent encounter (principal); X58.XXXD Exposure to other specified factors, subsequent encounter ==

== ENCOUNTER 2021-10-04 16:00 | Outpatient (REF) | payer MEDICARE, SELFPAY ==
[2021-10-04 19:40] LABS: Abs Immature Grans 0.05 10^3/uL (0.0-0.06); Absolute Basophil Count 0.08 10^3/uL (0.0-0.2); Absolute Eosinophil Count 0.11 10^3/uL (0.0-0.7); Absolute Lymphocyte Count 1.38 10^3/uL (1.2-3.4); Absolute Monocyte Count 0.74 10^3/uL (0.1-0.8); Absolute Neutrophil Count 5.37 10^3/uL (1.2-6.7); Eosinophils % 1.4; HCT 45.5 % (36.0-46.0); HGB 14.9 g/dL (11.2-15.7); Immature Grans % 0.6; Lymphocytes % 17.9; MCH 34.9 pg (27.0-33.0); MCHC 32.7 % (32.0-36.0); MCV 106.6 fL (80-95); Monocytes % 9.6; Neutrophils % 69.5; Nucleated RBC 0 %; Platelet Count 246 10^3/uL (130-400); RBC 4.27 10^6/uL (3.93-5.22); RDW 12.7 % (11.7-14.6); RDW-SD 50.7 fL; WBC 7.73 10^3/uL (4.4-10.8)
[2021-10-04 19:58] LABS: Iron 134 ug/dL (50-170)
[2021-10-04 20:25] LABS: ALT 28 U/L (14-59); AST 25 U/L (15-37); Alkaline Phosphatase 135 U/L (46-116); Anion Gap 8.5 mmol/L (3-11); BUN 11 mg/dL (7-18); Bilirubin, Total 0.3 mg/dL (0.2-1.0); CO2 25.5 mmol/L (21.0-32.0); CREATININE 0.8 mg/dL (0.55-1.02); Calcium 9.1 mg/dL (8.5-10.1); Chloride 106 mmol/L (98-107); Cholesterol 280 mg/dL (<200); Ferritin 89 ng/mL (8-252); Glucose 96 mg/dL (74-106); Magnesium 2.2 mg/dL (1.8-2.4); Potassium 4.7 mmol/L (3.5-5.1); Sodium 140 mmol/L (136-145); Total Protein 7.3 g/dL (6.4-8.2); Triglyceride 67 mg/dL (<150); Vitamin B12 1302 pg/mL (193-986)
[2021-10-04 20:29] LABS: Calculated LDL 109 mg/dL (<100); Folate > 20.0 ng/mL (8.6-20.0); HDL Cholesterol 158 mg/dL (40-60)
[2021-10-05 17:16] LABS: Estradiol 59 pg/mL (See Note)
[2021-10-06 04:48] LABS: Vitamin D 25 Total 37.2 ng/mL (30-100)
[2021-10-06 09:46] LABS: Parathyroid Hormone,Intact 22 pg/mL (19-88)
[2021-10-08 12:13] LABS: Thiamine (Vitamin B1), WB 159 nmol/L (70-180)
== END 2021-10-04 16:01 | disposition home or self-care (01) ==
LOC: NCHCN 16:00
PROVIDERS: PCP Physician Assistant Medical; Visit Provider Physician Assistant Medical
DX: Z98.84 Bariatric surgery status (principal); N95.1 Menopausal and female climacteric states; K29.70 Gastritis, unspecified, without bleeding
CPT/HCPCS: 80053; 80061; 82306; 82607; 82670; 82728; 82746; 83036; 83540; 83735; 83970; 84181; 84425; 85025

== ENCOUNTER → 2021-10-05 12:57 | Outpatient (BNVA) | payer MEDICARE, SELFPAY | PROVIDERS: PCP Physician Assistant Medical; Referring Provider Physician Assistant Medical; Visit Provider Student in an Organized Health Care Education/Training Program | DX: S46.212D Strain of muscle, fascia and tendon of other parts of biceps, left arm, subsequent encounter (principal); X58.XXXD Exposure to other specified factors, subsequent encounter ==

== ENCOUNTER → 2021-10-26 09:17 | Outpatient (BNVA) | payer MEDICARE, SELFPAY | PROVIDERS: PCP Physician Assistant Medical; Referring Provider Physician Assistant Medical; Visit Provider Student in an Organized Health Care Education/Training Program | DX: S46.212A Strain of muscle, fascia and tendon of other parts of biceps, left arm, initial encounter (principal); X58.XXXA Exposure to other specified factors, initial encounter ==

== ENCOUNTER 2021-11-19 07:49 | Emergency (ER) | payer MEDICARE, SELFPAY ==
[2021-11-19 07:51] VITALS: BP 130/86; PULSE 69; RESP 16; TEMP 36.9; O2SAT 97
--- NOTE | 2021-11-19 08:00 | DI.RAD_ITS ---
Exam(s) XR HUMERUS RT XR SHOULDER RT COMPLETE 2+V EXAM: XR HUMERUS RT CLINICAL HISTORY: blunt trauma TECHNIQUE: COMPARISON: CR,XR XR SHOULDER RT COMPLETE 2+V from 11/19/2021 FINDINGS: Four views of the shoulder and 3 additional views of the humerus were obtained. There is a prominent osteophyte is superior aspect of the acromion. There is no evidence of acute fracture or dislocatio n of the shoulder nor is there a humeral fracture. IMPRESSION: RADIATION DOSE DELIVERED: Total DLP
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
[2021-11-19 09:51] VITALS: BP 154/80; PULSE 60; RESP 16; TEMP 36.6; O2SAT 98
--- NOTE | 2021-11-19 10:06 | DI.VRAD_ITS ---
PROCEDURE INFORMATION: Exam: XR Right Shoulder Exam date and time: 11/19/2021 8:23 AM Age: 41 years old Clinical indication: Pain; Shoulder; Right TECHNIQUE: Imaging protocol: XR Right shoulder. Views: 2 or more views. COMPARISON: CR XR SHOULDER RT COMPLETE 2+V 10/28/2020 7:46 AM FINDINGS: Bones/joints: Old posttraumatic changes about the acromion. Mild arthrosis of the acromioclavicular joint. No acute bony abnormalities. Soft tissues: Normal. IMPRESSION: No acute findings. Dictated and Authenticated by: Antonio Argueta MD. Ordering:KHADAR Alvarez MD
--- NOTE | 2021-11-19 10:06 | DI.VRAD_ITS ---
PROCEDURE INFORMATION: Exam: XR Right Humerus Exam date and time: 11/19/2021 8:21 AM Age: 41 years old Clinical indication: Pain; Upper arm; Right; Patient HX: Blunt trauma TECHNIQUE: Imaging protocol: XR Right humerus. Views: 2 or more views. COMPARISON: MR UPPER JOINT RT WO 02/24/2021 7:57 AM FINDINGS: Bones/joints: Normal. Soft tissues: Normal. IMPRESSION: No acute findings. Dictated and Authenticated by: Antonio Argueta MD. Ordering:KHADAR Alvarez MD
== END 2021-11-19 09:56 | disposition home or self-care (01) ==
PROVIDERS: Emergency Provider Nurse Practitioner Family; PCP Physician Assistant Medical
DX: S49.81XA Other specified injuries of right shoulder and upper arm, initial encounter (principal); W10.9XXA Fall (on) (from) unspecified stairs and steps, initial encounter
CPT/HCPCS: 99283; 73030; 73060

== ENCOUNTER → 2021-11-23 09:50 | Outpatient (BNVA) | payer MEDICARE, SELFPAY | PROVIDERS: PCP Physician Assistant Medical; Referring Provider Physician Assistant Medical | DX: S49.91XA Unspecified injury of right shoulder and upper arm, initial encounter (principal); W10.9XXA Fall (on) (from) unspecified stairs and steps, initial encounter | CPT/HCPCS: 99213 ==

== ENCOUNTER 2021-12-07 11:53 | Outpatient (CLI) | payer MEDICARE, SELFPAY ==
--- NOTE | 2021-12-07 11:30 | DI.RAD_ITS ---
Exam(s) XR ELBOW LT LIMITED EXAM: XR ELBOW LT LIMITED CLINICAL HISTORY: elbow pain. TECHNIQUE: 2D digital imaging was performed. Two views. COMPARISON: CR,XR XR HUMERUS RT from 11/19/2021 FINDINGS: BONES: No acute fracture is present. No bony destructive lesion is seen. JOINTS: The elbow is normally aligned. No joint effusion is seen. SOFT TISSUE: Normal. IMPRESSION: Unremarkable radiographs of the left elbow. DATA REPOSITORY: RADIATION DOSE DELIVERED:
== END 2021-12-07 11:54 | disposition home or self-care (01) ==
LOC: DIORS 11:54
PROVIDERS: PCP Physician Assistant Medical; Referring Provider Physician Assistant Medical; Visit Provider Student in an Organized Health Care Education/Training Program
DX: M25.522 Pain in left elbow (principal); S46.011A Strain of muscle(s) and tendon(s) of the rotator cuff of right shoulder, initial encounter; S46.312A Strain of muscle, fascia and tendon of triceps, left arm, initial encounter; X58.XXXA Exposure to other specified factors, initial encounter
CPT/HCPCS: 99214; 73070

== ENCOUNTER → 2021-12-15 10:09 | Outpatient (BNVA) | payer MEDICARE, SELFPAY | PROVIDERS: PCP Physician Assistant Medical; Referring Provider Physician Assistant Medical; Visit Provider Physical Therapy Assistant | DX: K52.9 Noninfective gastroenteritis and colitis, unspecified (principal); R10.13 Epigastric pain | CPT/HCPCS: 99213 ==

== ENCOUNTER → 2021-12-21 03:33 | Outpatient (CLI) | payer MEDICARE, SELFPAY ==
--- NOTE | 2021-12-21 07:00 | DI.MRI_ITS ---
Exam(s) MR UPPER JOINT LT WO EXAM: MR UPPER JOINT LT WO CLINICAL HISTORY: Left distal triceps/ elbow pain and weakness, RUPTURE LT TRICEPS TENDON. TECHNIQUE: Multiplanar multisequence MRI was performed. COMPARISON: None. FINDINGS: BONES: No occult fracture is identified. There is mild marrow edema seen in the posterior aspect of the olecranon near the triceps insertion. JOINTS: The articular cartilage is unremarkable. No joint effusion is present. TENDONS: Common flexors: Unremarkable. Common extensors: Unremarkable. Biceps: Unremarkable. Triceps: Unremarkable. MUSCLES: Unremarkable. MEDIAN NERVE: Unremarkable on this noncontrast examination. ULNAR NERVE: Unremarkable on this noncontrast examination. SOFT TISSUES: Unremarkable. LIGAMENTS: Ulnar collateral: Unremarkable. Radial collateral: Unremarkable. OTHER: IMPRESSION: Unremarkable MRI of the left elbow. DATA REPOSITORY:
--- NOTE | 2021-12-21 07:00 | DI.MRI_ITS ---
Exam(s) MR UPPER JOINT RT WO EXAM: MR UPPER JOINT RT WO CLINICAL HISTORY: Right shoulder injury pain weakness, TRAUMATIC TEAR, [id number]. TECHNIQUE: Multiplanar multisequence MRI was performed. COMPARISON: MR MR UPPER JOINT RT WO from 02/24/2021 MR MR UPPER JOINT LT WO from 09/07/2021 CR,XR XR SHOULDER RT COMPLETE 2+V from 11/19/2021 FINDINGS: BONES: There is a nondisplaced fracture of the greater tuberosity with associated marrow edema. JOINTS: Degenerative changes are seen at the acromioclavicular joint. The glenohumeral joint is norm al. TENDONS: Supraspinatus: There is hyperintense signal seen in the supraspinatus tendon substance. The findings may represent a partial intrasubstance tear. Infraspinatus: There is also mild increased signal seen in the infraspinatus tendon. This may repres ent tendinosis or tear. Subscapularis: Unremarkable. Teres Minor: Unremarkable. Biceps and Bryan: Unremarkable. MUSCLES: Unremarkable. GLENOID LABRUM: There is hyperintense signal seen in the anterior labrum suspicious for tear. This i s best appreciated on the axial views. SOFT TISSUES: Unremarkable. LIGAMENTS: Unremarkable. OTHER: There is a small amount of fluid in the subacromial subdeltoid bursa. IMPRESSION: 1. Nondisplaced fracture of the greater tuberosity with associated marrow edema. 2. Hyperintense signal seen in the supraspinatus and infraspinatus tendon suspicious for intrasubstan ce tear versus tendinosis. 3. Hyperintense signal seen in the anterior labrum suspicious for tear. DATA REPOSITORY:
== END ==
PROVIDERS: PCP Physician Assistant Medical; Visit Provider Student in an Organized Health Care Education/Training Program
DX: S46.312A Strain of muscle, fascia and tendon of triceps, left arm, initial encounter (principal); S42.91XA Fracture of right shoulder girdle, part unspecified, initial encounter for closed fracture; R53.1 Weakness; X58.XXXA Exposure to other specified factors, initial encounter; S46.011A Strain of muscle(s) and tendon(s) of the rotator cuff of right shoulder, initial encounter
CPT/HCPCS: 73221

== ENCOUNTER 2021-12-28 12:27 | Outpatient (CLI) | payer MEDICARE, SELFPAY ==
--- NOTE | 2021-12-28 11:15 | DI.RAD_ITS ---
Exam(s) XR SHOULDER RT COMPLETE 2+V EXAM: XR SHOULDER RT COMPLETE 2+V CLINICAL HISTORY: right shoulder f/u TECHNIQUE: COMPARISON: CR,XR XR SHOULDER RT COMPLETE 2+V from 11/19/2021 FINDINGS: Two views were obtained. There is a minimally displaced fracture of the greater tuberosity of the hu merus as noted on prior MR examination of December 21. There are hypertrophic changes at the acromial c lavicular joint, no other significant findings. IMPRESSION: RADIATION DOSE DELIVERED: Total DLP
== END 2021-12-28 12:28 | disposition home or self-care (01) ==
LOC: DIORS 12:27
PROVIDERS: PCP Physician Assistant Medical; Referring Provider Physician Assistant Medical; Visit Provider Student in an Organized Health Care Education/Training Program
DX: S46.011A Strain of muscle(s) and tendon(s) of the rotator cuff of right shoulder, initial encounter; S42.201A Unspecified fracture of upper end of right humerus, initial encounter for closed fracture; X58.XXXA Exposure to other specified factors, initial encounter
CPT/HCPCS: 99214; 73030

== ENCOUNTER 2022-02-08 09:27 | Outpatient (CLI) | payer MEDICARE, SELFPAY ==
[2022-02-09 09:08] LABS: IgA 126 mg/dL (85-499); IgG 972 mg/dL (610-1,616)
[2022-02-09 22:23] LABS: Tissue Transglutaminase Ab IgA <1.2 U/mL
== END 2022-02-08 09:28 | disposition home or self-care (01) ==
LOC: LBO 09:28
PROVIDERS: PCP Physician Assistant Medical; Visit Provider Physician Assistant Medical
DX: R19.7 Diarrhea, unspecified (principal); S42.201D Unspecified fracture of upper end of right humerus, subsequent encounter for fracture with routine healing; S46.212D Strain of muscle, fascia and tendon of other parts of biceps, left arm, subsequent encounter; X58.XXXD Exposure to other specified factors, subsequent encounter
CPT/HCPCS: 36415; 82784; 99213; 99214; 83516; 84443

== ENCOUNTER 2022-02-08 10:49 | Outpatient (CLI) | payer MEDICARE, SELFPAY ==
--- NOTE | 2022-02-08 10:30 | DI.RAD_ITS ---
Exam(s) XR SHOULDER RT COMPLETE 2+V EXAM: XR SHOULDER RT COMPLETE 2+V CLINICAL HISTORY: right humerus f/u. TECHNIQUE: 2D digital imaging was performed. COMPARISON: CR XR SHOULDER RT COMPLETE 2+V from 12/28/2021 FINDINGS: Two views Greater tuberosity fracture appears unchanged. No further displacement. No calcifications in subacr omial space. Glenohumeral joint appears. IMPRESSION: DATA REPOSITORY: RADIATION DOSE DELIVERED:
== END 2022-02-08 10:50 | disposition home or self-care (01) ==
LOC: DIORS 10:50
PROVIDERS: PCP Physician Assistant Medical; Referring Provider Physician Assistant Medical; Visit Provider Student in an Organized Health Care Education/Training Program
DX: S46.201D Unspecified injury of muscle, fascia and tendon of other parts of biceps, right arm, subsequent encounter; S46.212D Strain of muscle, fascia and tendon of other parts of biceps, left arm, subsequent encounter; X58.XXXD Exposure to other specified factors, subsequent encounter
CPT/HCPCS: 73030

== ENCOUNTER 2022-02-23 15:44 | Outpatient (REF) | payer MEDICARE, SELFPAY ==
[2022-02-25 18:33] LABS: Calprotectin <50.0 mcg/g
== END 2022-02-23 15:45 | disposition home or self-care (01) ==
LOC: LBN 15:44
PROVIDERS: PCP Physician Assistant Medical; Visit Provider Physician Assistant Medical
DX: R19.7 Diarrhea, unspecified (principal)
CPT/HCPCS: 83993

== ENCOUNTER 2022-03-29 08:57 | Outpatient (CLI) | payer MEDICARE, SELFPAY ==
--- NOTE | 2022-03-29 08:30 | DI.RAD_ITS ---
Exam(s) XR SHOULDER RT COMPLETE 2+V EXAM: XR SHOULDER RT COMPLETE 2+V CLINICAL HISTORY: right shoulder f/u. TECHNIQUE: 2D digital imaging was performed. COMPARISON: CR XR SHOULDER RT COMPLETE 2+V from 12/28/2021 CR XR SHOULDER RT COMPLETE 2+V from 02/08/2022 FINDINGS: Two views- AP and outlet and axillary Y-view Again noted is the fracture of the greater tuberosity. This appears nondisplaced on the frontal view . On the outlet view the appearance is unchanged from the outlet view of 12/28/2021, with mild displ acement. IMPRESSION: No radiographic change. DATA REPOSITORY: RADIATION DOSE DELIVERED:
== END 2022-03-29 08:58 | disposition home or self-care (01) ==
LOC: DIORS 08:57
PROVIDERS: PCP Physician Assistant Medical; Referring Provider Physician Assistant Medical; Visit Provider Student in an Organized Health Care Education/Training Program
DX: S42.201G Unspecified fracture of upper end of right humerus, subsequent encounter for fracture with delayed healing; X58.XXXA Exposure to other specified factors, initial encounter
CPT/HCPCS: 99214; 73030

== ENCOUNTER → 2022-04-06 01:55 | Outpatient (CLI) | payer MEDICARE, SELFPAY ==
--- NOTE | 2022-04-06 08:29 | DI.CT_ITS ---
Exam(s) CT UPPER EXTREMITY RT WO EXAM: CT UPPER EXTREMITY RT WO CLINICAL HISTORY: Delayed union GT fx,[id number]. TECHNIQUE: Imaging Protocol: Axial computed tomography images with coronal and sagittal reformatted images were created and reviewed. COMPARISON: CR XR SHOULDER RT COMPLETE 2+V from 03/29/2022 FINDINGS: Bones: There well corticated osseous density superior to the acromion which appear old. There appea rs to be near complete healing of the greater tuberosity fracture. No new fracture is identified. B august alignment is satisfactory. No cellulitic or osteomyelitic changes are identified. There is no e vidence of joint space narrowing or cystic degeneration seen. No lytic or sclerotic lesions are ident ified. Soft Tissues: Normal. IMPRESSION: Near complete union of the greater tuberosity fracture. No acute fracture or dislocation. RADIATION DOSE DELIVERED: 783.61mGy.cm Total DLP 783.61mGy.cm Total DLP DATA REPOSITORY: All CT scans at this facility are submitted to the National Radiology Data Registry (NRDR) Dose Index Registry (DIR) with the [employer] (A[employer]). RADIATION OPTIMIZATION: All CT scans at this facility use at least one of these dose optimization te chniques: automated exposure control; mA and/or kV adjustment per patient size (includes targeted exa ms where dose is matched to clinical indication); or iterative reconstruction.
== END ==
PROVIDERS: PCP Physician Assistant Medical; Visit Provider Student in an Organized Health Care Education/Training Program
DX: S42.201D Unspecified fracture of upper end of right humerus, subsequent encounter for fracture with routine healing (principal); X58.XXXD Exposure to other specified factors, subsequent encounter
CPT/HCPCS: 73200

== ENCOUNTER → 2022-04-18 08:15 | Outpatient (BNVA) | payer MEDICARE, SELFPAY | PROVIDERS: PCP Physician Assistant Medical; Referring Provider Physician Assistant Medical; Visit Provider Student in an Organized Health Care Education/Training Program | DX: X58.XXXD Exposure to other specified factors, subsequent encounter (principal); S42.201G Unspecified fracture of upper end of right humerus, subsequent encounter for fracture with delayed healing | CPT/HCPCS: 99213 ==

== ENCOUNTER 2022-06-20 08:31 | Outpatient (CLI) | payer MEDICARE, SELFPAY ==
--- NOTE | 2022-06-20 08:15 | DI.RAD_ITS ---
Exam(s) XR SHOULDER RT COMPLETE 2+V EXAM: XR SHOULDER RT COMPLETE 2+V CLINICAL HISTORY: right shoulder f/u. TECHNIQUE: 2D digital imaging was performed of the right shoulder. Two images were obtained. AP, G rashey, Y-view and axillary views were obtained. COMPARISON: CR XR SHOULDER RT COMPLETE 2+V from 03/29/2022 FINDINGS: BONES: The previously noted fracture of the greater tuberosity is not well visualized on the current examination consistent with interval healing. No new fracture is identified. No bony destructive le russell is seen. JOINTS: No dislocation present. SOFT TISSUE: Normal. IMPRESSION: No acute abnormality. The greater tuberosity fracture appears to be healed. A CT scan may be consid ered for further evaluation. DATA REPOSITORY: RADIATION DOSE DELIVERED:
== END 2022-06-20 08:32 | disposition home or self-care (01) ==
LOC: DIORS 08:31
PROVIDERS: PCP Physician Assistant Medical; Referring Provider Physician Assistant Medical; Visit Provider Student in an Organized Health Care Education/Training Program
DX: S42.201G Unspecified fracture of upper end of right humerus, subsequent encounter for fracture with delayed healing (principal); X58.XXXD Exposure to other specified factors, subsequent encounter; M75.51 Bursitis of right shoulder
CPT/HCPCS: 99214; 73030

== ENCOUNTER 2022-07-27 01:13 | Outpatient (CLI) | payer MEDICARE, SELFPAY ==
--- NOTE | 2022-07-27 | DI.MRI_ITS ---
Exam(s) MR LUMBAR SPINE WO EXAM: MR LUMBAR SPINE WO CLINICAL HISTORY: LOW BACK PAIN, M54.5. TECHNIQUE: Multiplanar multisequence MRI of the Lumbar spine was performed. COMPARISON: MR MR LUMBAR SPINE WO from 10/15/2019 CR XR SACROILIAC JOINTS from 10/15/2019 FINDINGS: Again noted are the fixation devices across both sacroiliac joints which results in some artifact. N o abnormal signal evident in the sacrum. Conus medullaris is at normal level. There is no evidence of conus mass nor subjacent clumping of in trathecal nerve roots to suggest arachnoiditis. The distal thecal sac appears unremarkable.There is no evidence of Tarlov intrasacral cysts nor other significant findings within the sacral canal Bones:There are no fractures nor ominous osseous lesions in the lumbar vertebral bodies and visualize d sacrum. With respect to the individual levels... T12-L1: Unremarkable L1-2: Mild disc space narrowing and anterior osseous lipping again noted. At this level there is min imal annular bulging again noted. No significant disc herniation. No canal stenosis. No significan t foraminal stenosis. No facet arthropathy. This level appears unchanged from prior MRI scan of Sep. L2-3: Minimal disc space narrowing. Mild relatively symmetrical annular bulging is again noted. No new dominant disc herniation. No central canal stenosis. No significant foraminal stenosis. No sig nificant facet arthropathy. This level appears unchanged from September 2019. L3-4: Normal disc height. No disc herniation or central canal stenosis.No foraminal stenosis.No face t arthropathy. Unchanged from September 2019. L4-5: Preserved disc height and signal. There is broad annular bulging at this level again noted, ap pearing unchanged. This results in symmetrical mild indentation of the anterior aspect of the thecal sac, unchanged. There is no dominant disc herniation at this level. Central canal dimensions are l ower normal. There is no significant foraminal stenosis on either side. Mild facet joint degenerati ve changes noted, appearing unchanged. This level appears unchanged from September 2019 L5-S1: This level again exhibits significant disc space narrowing and Modic type 2 sub endplate mild fatty changes. There is again noted symmetrical annular bulging, similar to the previous study. The re is no central spinal canal stenosis. The bulging annulus is again noted to extend into the floor of both exiting neural foramina and there is mild-moderate vertical foraminal stenosis on both sides again noted, unchanged. Facet joints appear unremarkable at this level. This level appears unchange d from the September 2019 study. Soft tissues: paraspinal soft tissues appear unremarkable. IMPRESSION: 1. Findings as detailed above but without significant change compared to the prior MRI scan performed 10/15/2019. DATA REPOSITORY:
== END 2022-07-27 01:33 ==
PROVIDERS: PCP Physician Assistant Medical; Visit Provider Physician Assistant Medical
DX: M51.26 Other intervertebral disc displacement, lumbar region (principal)
CPT/HCPCS: 72148

== ENCOUNTER 2022-08-04 08:39 | Day surgery (SDC) | payer MEDICARE, SELFPAY ==
[2022-08-04] VITALS (8 sets, daily range): BP systolic 111–154; BP diastolic 70–90; PULSE 63–79; RESP 12–22; TEMP 36.3–36.9; O2SAT 99–100; BMI 32.8
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
[2022-08-04] MEDS: Lactated Ringers 1,000 ML 30 ML IV (09:23)
--- NOTE | 2022-08-04 09:42 | W.ANESNERVE ---
Nerve Block Single Injection Procedure Date and Time Date Performed: 08/04/22 Procedure Start: 09:27 Location Where Procedure Performed Procedure Location: Day Surgery Unit Reason Performed: Postoperative Analgesia Requesting Provider: Scotty Faustin Timeout Performed Timeout Performed: Yes Monitoring Used ECG, Blood Pressure and SpO2 Sterility Sterility: Hand Hygiene, Surgical Cap, Surgical Mask, Sterile Gloves and Chlorhexidine Sedation Given During Procedure Sedation Given (Indicate Dose Given): Versed IV Dose:: 2 MG Patient Mental Status Patient Mental Status: Awake Nerve Block 1st Nerve Block: Laterality: Right Block Type: Interscalene Ultrasound Image Saved?: Yes Needle / Catheter Used: 100mm SonoPlex II Local Anesthetic Bolus (Indicate Dose Given): Lidocaine used for local infiltration of skin, Injected in 3-5ml increments after negative blood aspiration, Bupivacaine 0.5% Dose:: 10 ml and Exparel Dose:: 10 ML Additives (Indicate Dose Given): None Ultrasound: Sterile probe cover and gel used Nerve Stimulator: Not Used Paresthesia: None Procedure Tolerated: No Complications and Patient tolerated well Procedure Outcome: Successful Performed By: Petra Florence Supervised By: Melia Mota
[2022-08-04] MEDS: ceFAZolin 2 GM/50 ML BAG IVPB (09:58)
[2022-08-04] MEDS: EPINEPHrine 30 MG/30 ML VIAL (10:50)
[2022-08-04] MEDS: Bupivacaine 0.5% Pres-Free W/EPI 30 ML VIAL (10:56)
--- NOTE | 2022-08-04 11:11 | W.PM.DSUDISC ---
Date of service: 08/04/22 Time of Service: 13:00 Discharge Plan Disposition Patient Disposition: Home Discharge Details Attending Provider: Scotty Faustin Primary Care Provider: Jo Shrestha Home Meds and New Rx's Prescriptions: New aspirin 81 mg tablet,delayed release (DR/EC) 81 mg PO DAILY 7 Days Qty: 7 0RF naproxen 250 mg tablet 250 - 500 mg PO BID PRNQty: 40 0RF Rx Instructions: take with a meal oxycodone 5 mg tablet 5 - 10 mg PO Q4H MDD 30 mg PRN (Reason: moderate to severe pain) Qty: 18 0RF Continued trazodone 100 mg Tablet 50 mg PO HS PRN PRN ondansetron 4 mg Tablet,Disintegrating 4 mg PO Q8H PRN topiramate 100 mg Tablet 200 mg PO BID duloxetine [Cymbalta] 60 mg Capsule,Delayed Release(Dr/Ec) 40 mg PO DAILY Flintstones Complete Tablet,Chewable 1 tab PO BID alisa citrate-mag ox,aspart-D3 250 mg-125 mg- 200 unit Wafer 1 wafer PO BID Benefiber Chewable 3 tab PO DAILY oxycodone 5 mg tablet 5 mg PO Q6H PRN lurasidone 40 mg tablet 40 mg PO HS Rx Instructions: must administer with food (at least 350 calories) bupropion HCl [Wellbutrin SR] 200 mg tablet sustained-release 12 hr 300 mg PO DAILY clonidine HCl 0.2 mg tablet 0.2 mg PO QHS Qty: 90 4RF celecoxib [Celebrex] 200 mg capsule 200 mg PO BID esomeprazole magnesium [Nexium] 20 mg capsule,delayed release(DR/EC) 20 mg PO DAILY albuterol sulfate [ProAir HFA] 8.5 GM HFA aerosol inhaler 2 puff Inhalation Q4H PRN PRN diclofenac sodium [Voltaren Arthritis Pain] 1 % gel 2 g topical QID Rx Instructions: apply to single elbow, wrist or hand; for hand includes palm/fingers/back of hand fexofenadine [Pina Allergy] 180 mg tablet 180 mg PO DAILY baclofen 10 mg tablet 20 mg PO BID PRN cyanocobalamin (vitamin B-12) [Vitamin B-12] 500 MCG tablet 1 tab PO DAILY Discharge Instructions Additional Instructions: Surgery: Right shoulder arthroscopy with revision extensive debridement and subacromial decompression Activity: You should gradually increase range of motion motion and use of your shoulder. You may use your shoulder for all regular activities. No heavy lifting, reaching overhead, or lifting away from body for approximately 6-8 weeks. You may use the sling whenever you are out of the house for a few weeks. At home it is best to remove the sling and rest the arm on a pillow at your side or support the operative side with your other hand. A physical therapy prescription will be provided separately in the office and follow-up as needed. Prescriptions: Aspirin 81 mg take 1 daily to prevent a blood clot for 7 days Naproxen 250 mg take 1-2 every 12 hours with a meal as needed for moderate pain (do not take at same time as other NSAIDs or Celebrex) Oxycodone 5 mg take 1-2 every 4-6 hours as needed for severe pain You may use [id number] Tylenol (acetaminophen) as needed for mild pain. These pain medications may be taken all at once or in different combinations as needed. Also, recommend Colace (docusate) as a stool softener as surgery and pain medicine cause constipation. You may try [id number] diphenhydramine (Benadryl) 25-50 mg nightly as a sleep aid Dressings: Remove shoulder bandage after 3 days. Leave the sticky Steri-Strips in place until they fall off or remove them after you shower. Cover the incisions with Band-Aids or leave them open to air. You may shower after 5 days. Follow-up: 10-[address] Faustin You may take off the leg compression stockings this evening at home. You may also leave them on a few days longer if you have a history of leg swelling or edema. Let us know right away if you develop any redness, drainage, fevers, chest pain, or trouble breathing. Do not drink alcohol or drive for at least 24 hours after anesthesia. Please call the office during business hours with any questions or concerns. DS: Diagnosis Discharge Diagnosis (1) Closed traumatic minimally displaced fracture of proximal end of right humerus with delayed healing: Status: Acute
--- NOTE | 2022-08-04 11:20 | W.PM.OP ---
Date of service: 08/04/22 Time of Service: 11:12 Operative Note Operative Note DATE OF PROCEDURE: 08/04/22 PRE-OP DIAGNOSIS: Right: 1. Greater tuberosity proximal humerus fracture 2. Rotator cuff tear 3. Bursitis POST-OP DIAGNOSIS: same PROCEDURE: Right: 1. Revision extensive debridement, CPT# 10195. This involved using arthroscopic hand instruments, power instruments, and radiofrequency instruments to debride anterior superior and posterior synovitis, debride partial articular supraspinatus and infraspinatus rotator cuff tearing, remove probable bone fracture loose fragment, and release adhesions about the anterior capsule subscapularis 2. Subacromial decompression, CPT# 98800. This involved using arthroscopic power instruments and a radiofrequency wand to complete a bursectomy and debride bursal rotator cuff fraying. The physician assistant certified was medically required in order to help assist in techniques above, which require positioning the arm, holding the arthroscope, and manipulating multiple instruments and sutures at the same time. This cannot be done without the help of an experienced physician assistant certified. SURGEON: Scotty Faustin FURNITURE STAINER: Yuli Vickers ANESTHESIA TYPE: Local By Surgeon, General LMA/ETT and Primary Nerve Block Refer to Anesthesia Record ESTIMATED BLOOD LOSS: 5 PATHOLOGY: none sent COMPLICATIONS: None Patient was transported to: PACU Patient's condition: stable Implants: None Indications: The patient was diagnosed with the above conditions and appropriately indicated for surgical intervention. Please see complete medical record for details. Findings: Exam under anesthesia: Full range of motion, no significant mechanical symptoms, no instability Glenohumeral joint: Moderate anterior and superior synovitis. Mild posterior synovitis. Large articular rotator cuff tear from the supraspinatus through the infraspinatus with significant fraying but less than 25% footprint and thickness involvement. Intact prior anterior labral repair. Intact prior arthroscopic biceps tenodesis. Moderate adhesions [facility] anterior capsule and subscapularis. Loose bone fragment posterior superiorly. No articular or fracture step-off. Fracture unable to be visualized either completely healed consistent with imaging or hidden step-off or partial healing under intact rotator cuff. Subacromial space: No significant bursal rotator cuff tear. Moderate diffuse superficial fraying. Only mild bursitis Procedure Description: In the operating room, general anesthesia was induced. Bilateral shoulders were examined. The patient was positioned in the beachchair position. All bony prominences were well-padded. Preoperative antibiotics were administered. The shoulder was prepped and draped in the usual sterile fashion. The correct patient, procedure, and side of the procedure were all verified prior to incision. Starting through the prior posterior portal a standard complete diagnostic arthroscopy was performed of the glenohumeral joint including inspection of the long head of the biceps, anterior and superior labrum, subscapularis tendon, supraspinatus and infraspinatus tendons, and axillary recess. The glenoid and humeral head cartilage as well as the posterior labrum were inspected from the prior use anterior viewing portal. Significant findings and interventions noted above. The revision extensive debridement was done of note involving the anterior adhesions, partial articular rotator cuff tearing, and loose bony fragment. There was no significant rotator cuff tear. The prior biceps areas and labral repairs were intact. Starting through the posterior portal, the arthroscope was directed into the subacromial space. A lateral 50 yard line lateral portal was omitted. A combination of power instruments and a radiofrequency ablator were used to debride bursitis. The coracoacromial ligament was preserved. The bursectomy was completed and the rotator cuff was thoroughly inspected with fairly diffuse superficial fraying, no significant thinning, or high-grade tearing appreciated. Normal trampoline effect on probing. Unable to appreciate any instability or displacement from prior fracture The shoulder was drained of arthroscopic fluid. All portal sites were copiously irrigated. These incisions were closed using 3-0 Monocryl in a buried fashion and then covered with Mastisol, Steri-Strips, Xeroform, dry gauze, and ABDs. The dressings were covered and secured with Medipore tape. The operative extremity was placed into a sling for immobilization. The patient awoke from anesthesia without complication and was transferred to the recovery room in a stable condition.
--- NOTE | 2022-08-04 11:58 | W.ANESPOSTOP ---
Postoperative Evaluation Date, Time and Location Date Performed: 08/04/22 Time Performed: 11:59 Patient Location: Day Surgery Unit Vital Signs Most Recent Imported Vital Signs: Most Recent Vital Signs Temp Pulse Resp BP Pulse Ox 36.6 C 65 20 154/84 H 99 08/04/22 11:40 08/04/22 11:40 08/04/22 11:40 08/04/22 11:40 08/04/22 11:40 Pain Score Most Recent Pain Score: Most Recent Pain Score Pain Level 0 08/04/22 11:40 Assessment Mental Status: Awake (Alert & Oriented to Patient Baseline) Airway and Respiratory Function: Patent airway with normal (patient baseline) respiratory exam Cardiovascular Function: Hemodynamically Stable Hydration Status: Adequately Hydrated Nausea & Vomiting: No Nausea or Vomiting Pain: Pt. Denies Any Pain Peripheral Nerve Block: Regional nerve block not resolved at time of post operative discharge
== END 2022-08-04 12:35 | disposition home or self-care (01) ==
PROVIDERS: PCP Physician Assistant Medical; Visit Provider Student in an Organized Health Care Education/Training Program
PROC: (CPT 29827; principal; 2022-08-04 10:30)
DX: M75.51 Bursitis of right shoulder (principal); M24.011 Loose body in right shoulder; M75.111 Incomplete rotator cuff tear or rupture of right shoulder, not specified as traumatic; S42.251S Displaced fracture of greater tuberosity of right humerus, sequela; X58.XXXS Exposure to other specified factors, sequela
CPT/HCPCS: 29823; 29826; 76942; J0131; J0690; J1100; J1885; J2250; J2370; J2405; J2704

== ENCOUNTER → 2022-08-15 08:28 | Outpatient (BNVA) | payer MEDICARE, SELFPAY | PROVIDERS: PCP Physician Assistant Medical; Referring Provider Physician Assistant Medical; Visit Provider Student in an Organized Health Care Education/Training Program | DX: S42.201G Unspecified fracture of upper end of right humerus, subsequent encounter for fracture with delayed healing (principal); X58.XXXD Exposure to other specified factors, subsequent encounter ==

== ENCOUNTER 2022-08-17 14:24 | Outpatient (REF) | payer MEDICARE, SELFPAY ==
[2022-08-21 16:58] LABS: Pancreatic Elastase, F >500 mcg/g
== END 2022-08-17 14:25 | disposition home or self-care (01) ==
LOC: NCHCN 14:24
PROVIDERS: PCP Physician Assistant Medical; Visit Provider Physician Assistant Medical
DX: R19.7 Diarrhea, unspecified (principal)
CPT/HCPCS: 82656

== ENCOUNTER 2022-10-31 17:46 | Emergency (ER) | payer MEDICARE, SELFPAY ==
[2022-10-31 17:53] VITALS: BP 126/75; PULSE 78; RESP 18; TEMP 37; O2SAT 99
--- NOTE | 2022-10-31 18:15 | DI.RAD_ITS ---
Exam(s) XR FOOT LT COMPLETE EXAM: XR FOOT LT COMPLETE CLINICAL HISTORY: dropped frozen ham on dorsal distal, r/o fx. TECHNIQUE: 2D digital imaging was performed. Three views. COMPARISON: CR from 02/26/2015 FINDINGS: BONES: No definite acute fracture is present. There is overlap of bony structures at the bases of th e 2nd and 3rd metatarsals. Fractures in this area not excluded. Accessory navicular. Tiny heel spu rs. No bony destructive lesion is seen. JOINTS: No dislocation present. SOFT TISSUE: Normal. IMPRESSION: No fracture visible. There is high clinical concern for fracture, CT could be performed. DATA REPOSITORY: RADIATION DOSE DELIVERED:
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
--- NOTE | 2022-10-31 19:40 | DI.VRAD_ITS ---
PROCEDURE INFORMATION: Exam: XR Left Foot Exam date and time: 10/31/2022 7:01 PM Age: 42 years old Clinical indication: Other: Dropped frozen ham on dorsal distal, R/O FX TECHNIQUE: Imaging protocol: Radiologic exam of the left foot. Views: 3 or more views. COMPARISON: No relevant prior studies available. FINDINGS: Limitations: Evaluation of the 2nd and 3rd metatarsal bases limited. Bones/joints: Small plantar and posterior calcaneal enthesophytes. No dislocation. No definite evidence of acute fracture. Soft tissues: Normal. IMPRESSION: No definite evidence of acute fracture, however, evaluation of the 2nd and 3rd metatarsal bases is limited. Consider repeat radiographs or CT for more definitive evaluation if clinically indicated. Dictated and Authenticated by: Jimmie Amaral MD. Ordering:MERLINE Fletcher MD
--- NOTE | 2022-11-02 10:18 | NUR.NOTE ---
Nursing Note: Readiology called asking about a CT for this pt. Assessed chart to determine this and will consult with Dr. Antony.
--- NOTE | 2022-11-02 14:02 | NUR.NOTE ---
Nursing Note: Radiology called earlier this morning asking about a CT for this pt. I just spoke with Dr. Antony about this, called the patient and she stated that her PCP had placed the order to have it done.
== END 2022-10-31 19:41 | disposition home or self-care (01) ==
PROVIDERS: Emergency Provider Physician Assistant; PCP Physician Assistant Medical
DX: S90.32XA Contusion of left foot, initial encounter (principal); J45.909 Unspecified asthma, uncomplicated; Z86.16 Personal history of COVID-19; W20.8XXA Other cause of strike by thrown, projected or falling object, initial encounter
CPT/HCPCS: 99283; 73630

== ENCOUNTER 2022-11-03 01:00 | Outpatient (CLI) | payer MEDICARE, SELFPAY ==
--- NOTE | 2022-11-03 | DI.CT_ITS ---
Exam(s) CT LOWER EXTREMITY LT WO EXAM: CT LOWER EXTREMITY LT WO CLINICAL HISTORY: LT FOOT PAIN, M79.672,TRAUMA, CONTUSION, F/U ABNL XR 10/31. TECHNIQUE: Imaging Protocol: Axial computed tomography images with coronal and sagittal reformatted images were created and reviewed. COMPARISON: CR,XR XR FOOT LT COMPLETE from 10/31/2022 FINDINGS: Bones: The osseous structures and articular surfaces are intact. Bony alignment is satisfactory. N ote is made of an accessory navicular. There is no evidence of joint space narrowing or cystic degen eration seen. No lytic or sclerotic lesions are identified. Soft Tissues: Normal. IMPRESSION: No acute fracture or dislocation. RADIATION DOSE DELIVERED: 204.81mGy.cm Total DLP 204.81mGy.cm Total DLP DATA REPOSITORY: All CT scans at this facility are submitted to the National Radiology Data Registry (NRDR) Dose Index Registry (DIR) with the [employer] (ACR). RADIATION OPTIMIZATION: All CT scans at this facility use at least one of these dose optimization te chniques: automated exposure control; mA and/or kV adjustment per patient size (includes targeted exa ms where dose is matched to clinical indication); or iterative reconstruction.
== END 2022-11-03 01:20 ==
LOC: DI 01:00
PROVIDERS: PCP Physician Assistant Medical; Visit Provider Physician Assistant Medical
DX: M79.672 Pain in left foot (principal)
CPT/HCPCS: 73700

== ENCOUNTER 2022-11-10 11:27 | Outpatient (REF) | payer MEDICARE, SELFPAY ==
[2022-11-10 15:22] LABS: HCT 44.4 % (36.0-46.0); HGB 14.9 g/dL (11.2-15.7); MCH 34.1 pg (27.0-33.0); MCHC 33.6 % (32.0-36.0); MCV 102 fL (80-95); MPV 8.7 fL (8.0-11.0); Platelet Count 214 10^3/uL (130-400); RBC 4.37 10^6/uL (3.93-5.22); RDW 12.7 % (11.7-14.6); RDW-SD 47.8 fL; WBC 5.84 10^3/uL (4.4-10.8)
[2022-11-10 15:59] LABS: ALT 53 U/L (14-59); AST 46 U/L (15-37); Albumin 3.9 g/dL (3.4-5.0); Alkaline Phosphatase 114 U/L (46-116); Anion Gap 6.3 mmol/L (3-11); BUN 11 mg/dL (7-18); Bilirubin, Total 0.3 mg/dL (0.2-1.0); CO2 28.7 mmol/L (21.0-32.0); CREATININE 0.9 mg/dL (0.55-1.02); Calcium 8.9 mg/dL (8.5-10.1); Chloride 101 mmol/L (98-107); Cholesterol 279 mg/dL (<200); Estimated GFR 81.35 (mL/min/1.73m2); Glucose 103 mg/dL (74-106); Potassium 4.4 mmol/L (3.5-5.1); Sodium 136 mmol/L (136-145); Total Protein 7.6 g/dL (6.4-8.2); Triglyceride 63 mg/dL (<150)
[2022-11-10 16:14] LABS: Calculated LDL 94 mg/dL (<100)
[2022-11-10 16:15] LABS: HDL Cholesterol 173 mg/dL (40-60)
== END 2022-11-10 11:28 | disposition home or self-care (01) ==
LOC: NCHCN 11:27
PROVIDERS: PCP Physician Assistant Medical; Visit Provider Physician Assistant Medical
DX: R19.7 Diarrhea, unspecified (principal); E66.8 Other obesity; R79.89 Other specified abnormal findings of blood chemistry
CPT/HCPCS: 80053; 80061; 85027; 83036

== ENCOUNTER 2022-12-20 12:49 | Outpatient (REF) | payer MEDICARE, SELFPAY ==
[2022-12-20 16:30] LABS: TSH (W/Ref FT4) 1.55 uIU/mL (0.36-3.74)
== END 2022-12-20 12:50 | disposition home or self-care (01) ==
LOC: NCHCN 12:49
PROVIDERS: PCP Physician Assistant Medical; Visit Provider Registered Nurse
DX: N95.1 Menopausal and female climacteric states (principal); Z86.39 Personal history of other endocrine, nutritional and metabolic disease
CPT/HCPCS: 84443

== ENCOUNTER 2023-01-09 00:51 | Outpatient (CLI) | payer MEDICARE, SELFPAY ==
--- NOTE | 2023-01-09 08:51 | DI.MAMMO_ITS ---
Exam(s) MAMMO SCREENING EXAM: MAMMO SCREENING CLINICAL HISTORY: SCREENING, Z12.31. TECHNIQUE: Bilateral full field digital CC and MLO mammographic images were obtained with 3D tomosyn thesis and utilizing computer aided detection (CAD). COMPARISON: Prior mammograms were reviewed. FINDINGS: There has been no significant change in the appearance and distribution of the fibroglandular tissue. There are no CAD designations There are no new spiculated masses nor malignant appearing microcalcification groups. Small benign-appearing lymph node laterally in the left breast is unchanged from prior studies. There is no significant architectural distortion nor skin thickening-retraction. IMPRESSION: No radiographic evidence of malignancy. BI-RADS Category 1 - Negative Breast Density - Category B - Scattered areas of fibroglandular density Breast density Category C or D implies that the patient has dense breast tissue. Dense breast tissue can make it harder to find cancer on a mammogram. Dense breast tissue is also associated with an incr eased risk of breast cancer. This information about the result of the mammogram report was provided to the patient to raise their awareness. Use this report when you speak with the patient about their risks for breast cancer, which includes their family history. At that time, you may recommend additional screening tests (Ultrasoun d or MRI) as these tests may add significant information. A negative radiographic report should not delay biopsy if a dominant or clinically suspicious mass is present. Up to ten percent of cancers are not identified on mammography. A negative report may reinforce clinical impression. Adenosis and dense breasts may obscure an underlying neoplasm. False positive reports average 6 to 10%. Patient will receive a letter notifying them of these results.
== END 2023-01-09 01:11 ==
LOC: DI 00:52
PROVIDERS: PCP Physician Assistant Medical; Visit Provider Physician Assistant Medical
DX: Z12.31 Encounter for screening mammogram for malignant neoplasm of breast (principal)
CPT/HCPCS: 77063; 77067

== ENCOUNTER 2023-02-27 01:11 | Outpatient (CLI) | payer MEDICARE, SELFPAY ==
--- NOTE | 2023-02-27 07:00 | DI.CT_ITS ---
Exam(s) CT SINUS WO EXAM: CT SINUS WO CLINICAL HISTORY: ongoing bilateral sinus pain, sinus pressure, tonsilith, J34.89, J35.8. Evaluate for sinusitis. TECHNIQUE: Imaging Protocol: Axial computed tomography images with coronal and sagittal reformatted images were created and reviewed. COMPARISON: No exams were available for comparison FINDINGS: AXIAL IMAGES: Frontal sinuses: Normally aerated. Ethmoid air cells: Normally aerated. Maxillary sinuses: Large mucous retention cyst in right maxillary sinus. No expansion of the sinus. No bony destruction.. Left normally aerated. Sphenoid sinus: Normally aerated. Ostiomeatal complexes: Patent. Osseous nasal septum: Midline. Visualized regional soft tissues: No acute findings. Orbits: Unremarkable. Bones: Unremarkable. Mastoid Air Cells: Normally aerated. IMPRESSION: Large mucous retention cyst in the right maxillary sinus. Remaining sinuses and nasal cavity are gasper ar. RADIATION DOSE DELIVERED: 139.32mGy.cm Total DLP DATA REPOSITORY: All CT scans at this facility are submitted to the National Radiology Data Registry (NRDR) Dose Index Registry (DIR) with the [employer] (ACR). RADIATION OPTIMIZATION: All CT scans at this facility use at least one of these dose optimization te chniques: automated exposure control; mA and/or kV adjustment per patient size (includes targeted exa ms where dose is matched to clinical indication); or iterative reconstruction.
== END 2023-02-27 01:31 ==
LOC: DI 01:13
PROVIDERS: PCP Physician Assistant Medical; Visit Provider Registered Nurse Maternal Newborn
DX: J34.89 Other specified disorders of nose and nasal sinuses (principal); J35.8 Other chronic diseases of tonsils and adenoids
CPT/HCPCS: 70486

== ENCOUNTER 2023-05-11 17:56 | Outpatient (REF) | payer MEDICARE, SELFPAY ==
[2023-05-11 15:14] LABS: HGB 13.2 g/dL (11.2-15.7); MCH 33.6 pg (27.0-33.0); MCHC 32.2 % (32.0-36.0); MCV 104 fL (80-95); MPV 8.5 fL (8.0-11.0); Platelet Count 191 10^3/uL (130-400); RBC 3.93 10^6/uL (3.93-5.22); RDW 12.8 % (11.7-14.6); RDW-SD 50.1 fL
[2023-05-11 16:00] LABS: ALT 21 U/L (14-59); AST 16 U/L (15-37); Albumin 3.6 g/dL (3.4-5.0); Alkaline Phosphatase 89 U/L (46-116); Anion Gap 9.6 mmol/L (3-11); BUN 11 mg/dL (7-18); Bilirubin, Total 0.3 mg/dL (0.2-1.0); CO2 23.4 mmol/L (21.0-32.0); CREATININE 0.9 mg/dL (0.55-1.02); Chloride 106 mmol/L (98-107); Estimated GFR 81.35 (mL/min/1.73m2); Glucose 98 mg/dL (74-106); Potassium 4.2 mmol/L (3.5-5.1); Sodium 139 mmol/L (136-145); Total Protein 7.2 g/dL (6.4-8.2)
== END 2023-05-11 17:57 | disposition home or self-care (01) ==
LOC: NCHCN 17:56
PROVIDERS: PCP Physician Assistant Medical; Visit Provider Physician Assistant Medical
DX: R79.89 Other specified abnormal findings of blood chemistry (principal); R19.7 Diarrhea, unspecified
CPT/HCPCS: 80053; 85027; 84443

== ENCOUNTER 2023-10-19 09:38 | Outpatient (REF) | payer MEDICARE, SELFPAY ==
[2023-10-19 16:20] LABS: C Diff PCR Negative (Negative)
[2023-10-24 19:12] LABS: Calprotectin <50.0 mcg/g
== END 2023-10-19 09:39 | disposition home or self-care (01) ==
LOC: LBN 09:38
PROVIDERS: PCP Physician Assistant Medical; Visit Provider Physician Assistant Medical
DX: R19.7 Diarrhea, unspecified (principal)
CPT/HCPCS: 87493; 83993

== ENCOUNTER 2024-02-14 20:03 | Outpatient (REF) | payer MEDICARE, SELFPAY ==
[2024-02-14 18:22] LABS: Glucose 87 mg/dL (74-106)
[2024-02-14 18:33] LABS: Hemoglobin A1C 4.9 % (<5.7)
[2024-02-16 07:58] LABS: Insulin 3.7 uIU/mL (<29.0)
== END 2024-02-14 20:04 | disposition home or self-care (01) ==
LOC: LBN 20:03
PROVIDERS: PCP Physician Assistant Medical; Visit Provider Surgery
DX: E66.9 Obesity, unspecified (principal); Z68.33 Body mass index [BMI] 33.0-33.9, adult; R79.89 Other specified abnormal findings of blood chemistry
CPT/HCPCS: 82947; 83036; 83525

== ENCOUNTER 2024-05-30 12:15 | Outpatient (REF) | payer MEDICARE, SELFPAY ==
--- NOTE | 2024-05-30 11:45 | PAPFT_PTH ---
PATIENT: Crys Giraldo LOC: [facility] U#:[id number] AGE/SX: 44/F ROOM: RE05/30/[address]: Kizzy Mcbride : 1980 BED: DIS: 05/30/2024 SPEC #: [id number] RECD: 05/30/24 15:42 STATUS: KATTY REMaria Del Carmen #: [id number] TRACEY: 05/30/24 11:[address]: Kizzy Mcbride DEPT: [facility] Cytology RECD BY: Elke Kumar ENTERED: 05/30/24 15:43 SP TYPE: PAPFT OTHR DR: Jo Shrestha Tissues: 1 - CX/ENDOCX FOR PAP SMEARS Procedures: PAP THIN PREP/[facility] Screening HPV DNA PROBE Comments: [id number] (HPV 16 & 18/45)
== END 2024-05-30 12:16 | disposition home or self-care (01) ==
LOC: LBN 12:15
PROVIDERS: PCP Physician Assistant Medical; Visit Provider Obstetrics & Gynecology Gynecology
DX: Z12.4 Encounter for screening for malignant neoplasm of cervix (principal); N95.1 Menopausal and female climacteric states; K60.2 Anal fissure, unspecified; N90.1 Moderate vulvar dysplasia
CPT/HCPCS: 88142; 87624

== ENCOUNTER 2024-08-21 02:36 | Outpatient (CLI) | payer MEDICARE, MEDICAID, SELFPAY ==
--- NOTE | 2024-08-21 06:30 | DI.US_ITS ---
Exam(s) US PELVIS TRANSVAGINAL EXAM: US PELVIS TRANSVAGINAL CLINICAL HISTORY: pelvic pain,s/p supracervical hysterectomy,salpingoectomy,ovaries remain, TECHNIQUE: Ultrasound of the pelvis was performed both transabdominal and transvaginal. COMPARISON: US POCUS EXAM from 08/04/2022 FINDINGS: UTERUS: Uterus is surgically absent. RIGHT OVARY: Measures 1.5 x 0.9 x 1.0 cm No significant cysts nor masses evident in the right ovary. LEFT OVARY: Measures 1.1 x 0.8 x 1.2 cm No significant cysts nor masses evident in the left ovary. CUL-DE-SAC: No free fluid evident. IMPRESSION: 1. Uterus is surgically absent. 2. No abnormal ovarian findings. 3. No free fluid nor obvious fluid collections evident. DATA REPOSITORY:
== END 2024-08-21 02:56 ==
PROVIDERS: PCP Physician Assistant Medical; Visit Provider Obstetrics & Gynecology Gynecology
DX: R10.2 Pelvic and perineal pain (principal)
CPT/HCPCS: 76830; 76856

== ENCOUNTER 2024-12-15 15:11 | Outpatient (REF) | payer MEDICARE, MEDICAID, SELFPAY ==
[2024-12-15 16:57] LABS: Abs Immature Grans 0.02 10^3/uL (0.0-0.06); Absolute Basophil Count 0.05 10^3/uL (0.0-0.2); Absolute Eosinophil Count 0.05 10^3/uL (0.0-0.7); Absolute Lymphocyte Count 1.65 10^3/uL (1.2-3.4); Absolute Monocyte Count 0.54 10^3/uL (0.1-0.8); Absolute Neutrophil Count 3.52 10^3/uL (1.2-6.7); Basophils % 0.9 %; Eosinophils % 0.9 %; HCT 41.9 % (36.0-46.0); HGB 13.9 g/dL (11.2-15.7); Immature Grans % 0.3 %; Lymphocytes % 28.3 %; MCH 33.8 pg (27.0-33.0); MCHC 33.2 % (32.0-36.0); MCV 102 fL (80-95); MPV 8.8 fL (8.0-11.0); Monocytes % 9.3 %; Neutrophils % 60.3 %; Platelet Count 197 10^3/uL (130-400); RBC 4.11 10^6/uL (3.93-5.22); RDW 12.4 % (11.7-14.6); RDW-SD 47.2 fL; WBC 5.83 10^3/uL (4.4-10.8)
[2024-12-15 17:24] LABS: Hemoglobin A1C 4.6 % (<5.7)
[2024-12-15 17:59] LABS: ALT 45 U/L (14-59); AST 24 U/L (15-37); Albumin 3.9 g/dL (3.4-5.0); Alkaline Phosphatase 96 U/L (46-116); Anion Gap 8.9 mmol/L (3-11); BUN 9 mg/dL (7-18); Bilirubin, Total 0.4 mg/dL (0.2-1.0); CO2 26.1 mmol/L (21.0-32.0); CREATININE 0.8 mg/dL (0.55-1.02); Calcium 9.1 mg/dL (8.5-10.1); Calculated LDL 84 mg/dL (<100); Chloride 99 mmol/L (98-107); Cholesterol 244 mg/dL (<200); Estimated GFR 92.54 (mL/min/1.73m2); Glucose 87 mg/dL (74-106); HDL Cholesterol 145 mg/dL (>or=50); Magnesium 2.2 mg/dL (1.8-2.4); Potassium 3.9 mmol/L (3.5-5.1); Sodium 134 mmol/L (136-145); TSH (W/Ref FT4) 1.17 uIU/mL (0.36-3.74); Total Protein 7.2 g/dL (6.4-8.2); Triglyceride 76 mg/dL (<150); Vitamin D 25 Total 57 ng/mL (30-100)
== END 2024-12-15 15:12 | disposition home or self-care (01) ==
LOC: NCHCN 15:11
PROVIDERS: PCP Physician Assistant Medical; Visit Provider Physician Assistant Medical
DX: E66.9 Obesity, unspecified (principal); R00.2 Palpitations; F34.0 Cyclothymic disorder; F43.12 Post-traumatic stress disorder, chronic
CPT/HCPCS: 80053; 80061; 82306; 83036; 83735; 84443; 85025

== ENCOUNTER 2024-12-19 13:48 | Outpatient (CLI) | payer MEDICARE, MEDICAID, SELFPAY | END 2024-12-19 13:49 | disposition home or self-care (01) | PROVIDERS: PCP Physician Assistant Medical; Visit Provider Physician Assistant Medical | DX: R00.2 Palpitations (principal) | CPT/HCPCS: 93246 ==

== ENCOUNTER 2025-01-08 07:12 | Outpatient (CLI) | payer MEDICARE, SELFPAY ==
--- NOTE | 2025-01-08 08:33 | W.CARDEVENT ---
Date of service: 01/08/25 Time of Service: 08:34 Cardiac Event Recorder Referring Provider:: Jo Shrestha Indications:: Palpitations Cardiac Event Note: This is a cardiac event monitor. Patient was monitored for 13 days and 19 hours. Rhythm throughout was sinus. Average heart rate was 80. Minimum was 45, maximum 141 There were very rare isolated atrial and ventricular ectopic beats There was no atrial fibrillation, no high-grade AV block, no pauses greater than 3 seconds Reported symptoms correlated to sinus rhythm
== END 2025-01-08 07:13 | disposition home or self-care (01) ==
LOC: CARDOPNVT 07:12
PROVIDERS: PCP Physician Assistant Medical; Visit Provider Internal Medicine Cardiovascular Disease
DX: R00.2 Palpitations (principal)
CPT/HCPCS: 93248

== ENCOUNTER 2025-03-18 19:28 | Outpatient (REF) | payer MEDICARE, SELFPAY ==
[2025-03-18 16:59] LABS: Abs Immature Grans 0.02 10^3/uL (0.0-0.06); HCT 40.3 % (36.0-46.0); HGB 13.2 g/dL (11.2-15.7); Immature Grans % 0.2 %; MCH 33.8 pg (27.0-33.0); MCHC 32.8 % (32.0-36.0); MCV 103 fL (80-95); MPV 8.9 fL (8.0-11.0); Platelet Count 199 10^3/uL (130-400); RBC 3.90 10^6/uL (3.93-5.22); RDW 12.8 % (11.7-14.6); RDW-SD 49.2 fL; WBC 8.35 10^3/uL (4.4-10.8)
[2025-03-18 17:08] LABS: Iron 107 ug/dL (50-170); Total Iron Binding Capacity 346 ug/dL (250-450); Transferrin Sat 31 % (15-50)
[2025-03-18 17:24] LABS: ALT 22 U/L (14-59); AST 15 U/L (15-37); Albumin 3.6 g/dL (3.4-5.0); Alkaline Phosphatase 62 U/L (46-116); Anion Gap 9.6 mmol/L (3-11); BUN 12 mg/dL (7-18); Bilirubin, Total 0.3 mg/dL (0.2-1.0); CO2 25.4 mmol/L (21.0-32.0); Calcium 8.9 mg/dL (8.5-10.1); Chloride 105 mmol/L (98-107); Estimated GFR 112.73 (mL/min/1.73m2); Ferritin 55 ng/mL (8-252); Glucose 86 mg/dL (74-106); Potassium 4.6 mmol/L (3.5-5.1); Sodium 140 mmol/L (136-145); Total Protein 6.6 g/dL (6.4-8.2)
== END 2025-03-18 19:29 | disposition home or self-care (01) ==
LOC: NCHCN 19:28
PROVIDERS: PCP Physician Assistant Medical; Visit Provider Physician Assistant Medical
DX: K29.70 Gastritis, unspecified, without bleeding (principal); E87.1 Hypo-osmolality and hyponatremia
CPT/HCPCS: 80053; 82728; 83540; 83550; 85025

== ENCOUNTER 2025-04-09 02:58 | Outpatient (CLI) | payer MEDICARE, SELFPAY ==
--- NOTE | 2025-04-09 | DI.CT_ITS ---
Exam(s) CT CHEST W EXAM: CT CHEST W CLINICAL HISTORY: HEMOPTYSIS R04.2 TECHNIQUE: Imaging Protocol: Axial computed tomography images with coronal and sagittal reformatted images were created and reviewed. Computer aided detection (CAD) was utilized. CONTRAST MATERIAL: Intravenous: Omnipaque 350 Contrast volume:70 ml. COMPARISON: CR ABD FLAT UPRIGHT PA CHEST from 11/08/2009 FINDINGS: Pulmonary parenchyma: No consolidation. No dominant measurable mass. Tracheobronchial tree: No bronchiectasis or mucous plugging. Mediastinum and Emma: No dominant adenopathy or fluid collection. Pleura: No effusion. No pneumothorax. Heart: The heart is not dilated. No coronary artery calcifications are seen. Aorta: Thoracic aorta non-dilated. No atherosclerotic changes. Pulmonary arteries: No gross evidence of emboli. Upper abdomen: No acute findings. Suture material in around the stomach. Cholecystectomy. Bones: Degenerative changes in the lower thoracic and upper lumbar spine. Soft tissues: Unremarkable. IMPRESSION: No acute abnormality. RADIATION DOSE DELIVERED: Total DLP DATA REPOSITORY: All CT scans at this facility are submitted to the National Radiology Data Registry (NRDR) Dose Index Registry (DIR) with the [employer] (ACR). RADIATION OPTIMIZATION: All CT scans at this facility use at least one of these dose optimization techniques: automated exposure control; mA and/or kV adjustment per patient size (includes targeted exams where dose is matched to clinical indication); or iterative reconstruction.
--- NOTE | 2025-04-09 12:55 | DI.MAMMO_ITS ---
Exam(s) MAMMO SCREENING EXAM: MAMMO SCREENING CLINICAL HISTORY: SCREENING MAMMO Z12.31. TECHNIQUE: Bilateral full field digital CC and MLO mammographic images were obtained with 3D tomosynthesis and utilizing computer aided detection (CAD). COMPARISON: Prior mammograms were reviewed. FINDINGS: No CAD designations. No new right breast findings. In the left breast there is a slightly lobulated nodule in the upper-outer quadrant which presently measures 8 by 5 mm. This represents increase in size from its prior stable smaller size on multiple prior mammograms dating back to 2016. There are no malignant-appearing microcalcification groups in this region nor elsewhere in either breast. There is no significant architectural distortion nor skin thickening-retraction. IMPRESSION: 1. No radiographic evidence of malignancy in the right breast. 2. Previously described stable benign-appearing nodule in the upper-outer quadrant of the left breast has somewhat increased in size from prior mammograms, presently measuring 8 x 5 mm. Spot compression view and ultrasound recommended. BI-RADS Category 0 - Incomplete: Need additional imaging evaluation Breast Density - Category B - There are scattered areas of fibroglandular density. Breast density Category C or D implies that the patient has dense breast tissue. Dense breast tissue can make it harder to find cancer on a mammogram. Dense breast tissue is also associated with an increased risk of breast cancer. This information about the result of the mammogram report was provided to the patient to raise their awareness. Use this report when you speak with the patient about their risks for breast cancer, which includes their family history. At that time, you may recommend additional screening tests (Ultrasound or MRI) as these tests may add significant information. A negative radiographic report should not delay biopsy if a dominant or clinically suspicious mass is present. Up to ten percent of cancers are not identified on mammography. A negative report may reinforce clinical impression. Adenosis and dense breasts may obscure an underlying neoplasm. False positive reports average 6 to 10%. Patient will receive a letter notifying them of these results.
[2025-04-09] MEDS: Omnipaque 350 MG/ML 500 ML BTL-Imaging package IJ (13:18)
[2025-04-09] MEDS: Normal Saline - Diluent 50 ML VIAL IJ (13:19)
== END 2025-04-09 03:18 ==
LOC: DI 02:59
PROVIDERS: PCP Physician Assistant Medical; Visit Provider Physician Assistant Medical
DX: Z12.31 Encounter for screening mammogram for malignant neoplasm of breast (principal); N63.21 Unspecified lump in the left breast, upper outer quadrant
CPT/HCPCS: 77063; 77067; 71260

== ENCOUNTER 2025-04-15 02:16 | Outpatient (CLI) | payer MEDICARE, SELFPAY ==
--- NOTE | 2025-04-15 | DI.US_ITS ---
Exam(s) MG MAMMO SCREEN CALL BACK UNI US BREAST LT COMPLETE EXAM: MG MAMMO SCREEN CALL BACK UNI-LEFT COMPLETE LEFT BREAST ULTRASOUND CLINICAL HISTORY: F/U MAMMO, R92.8,INCREASE IN SIZE LT BREAST NODULE. TECHNIQUE: Unilateral LEFT BREAST spot mammographic images obtained with 3D tomosynthesisand utilizing computer aided detection (CAD). . Complete LEFT breast Ultrasound was also performed, including all 4 quadrants, the retroareolar region, and the ipsilateral axilla. COMPARISON: Prior mammograms were reviewed. This additional imaging was performed due to findings described on the recent screening mammogram of 04/09/2025. FINDINGS: DIAGNOSTIC MAMMOGRAM: Additional mammographic views performed todaydoes not dissipate this nodule. We proceeded with ultrasound COMPLETE LEFT BREAST ULTRASOUND: Ultrasound performed today reveals a solitary finding which is at the 2 o'clock position which corresponds to the finding on the mammogram. This has the appearance of a 7 x 5 mm wider than taller nodule which exhibits some internal echoes but with some vascular flow evident within this part of the nodule. There is no decreased through transmission. There is mild increased through transmission. There are no other significant focal ultrasound findings in all 4 quadrants. Scanning of the ipsilateral axilla reveals no significant adenopathy. IMPRESSION: 1. Finding at 2 o'clock position as described above which corresponds to the finding on the mammogram. Recommend ultrasound-guided core biopsy. . The patient was informed of these findings and recommendations by myself prior to leaving the department today. Also called referring provider on today's date at 1:48 p.m. BI-RADS Category 4 - Suspicious Abnormality: Biopsy should be considered Breast Density - Category B - There are scattered areas of fibroglandular density. Breast density Category C or D implies that the patient has dense breast tissue. Dense breast tissue can make it harder to find cancer on a mammogram. Dense breast tissue is also associated with an increased risk of breast cancer. This information about the result of the mammogram report was provided to the patient to raise their awareness. Use this report when you speak with the patient about their risks for breast cancer, which includes their family history. At that time, you may recommend additional screening tests (Ultrasound or MRI) as these tests may add significant information. A negative radiographic report should not delay biopsy if a dominant or clinically suspicious mass is present. Up to ten percent of cancers are not identified on mammography. A negative report may reinforce clinical impression. Adenosis and dense breasts may obscure an underlying neoplasm. False positive reports average 6 to 10%. Patient will receive a letter notifying them of these results.
== END 2025-04-15 02:36 ==
LOC: DI 02:16
PROVIDERS: PCP Physician Assistant Medical; Visit Provider Physician Assistant Medical
DX: Z12.31 Encounter for screening mammogram for malignant neoplasm of breast (principal); N63.12 Unspecified lump in the right breast, upper inner quadrant
CPT/HCPCS: 76642; 77063; 77067

== ENCOUNTER 2025-04-29 03:24 | Outpatient (CLI) | payer MEDICARE, SELFPAY ==
--- NOTE | 2025-04-29 13:22 | DI.MAMMO_ITS ---
Exam(s) MG MAMMO DIAGNOSTIC UNI EXAM: MG MAMMO DIAGNOSTIC UNI CLINICAL HISTORY: post biopsy mammogram,lt breast mass,n63.20 TECHNIQUE: Left cc and MLO mammogram images were performed according to the usual protocol including computer analysis with CAD system, tomosynthesis and C- view imaging. COMPARISON: MG MG MAMMO SCREENING from 04/09/2025 US US BREAST LT COMPLETE from 04/15/2025 MG MG MAMMO SCREEN CALL BACK UNI from 04/15/2025 US POCUS EXAM from 04/29/2025 FINDINGS: The left breast is composed of scattered fibroglandular densities, Breast Density category B. Patient is status post ultrasound guided biopsy of the previously noted nodule in the upper outer quadrant. The nodule is visible with a radiopaque marker in place. There is surrounding hematoma. . IMPRESSION: Status post biopsy of upper outer quadrant nodule with marker in place. BI-RADS Category 0 - Incomplete: Need additional imaging evaluation. Awaiting biopsy results. Breast Density - Category B - There are scattered areas of fibroglandular density. Breast density Category C or D implies that the patient has dense breast tissue. Dense breast tissue can make it harder to find cancer on a mammogram. Dense breast tissue is also associated with an increased risk of breast cancer. This information about the result of the mammogram report was provided to the patient to raise their awareness. Use this report when you speak with the patient about their risks for breast cancer, which includes their family history. At that time, you may recommend additional screening tests (Ultrasound or MRI) as these tests may add significant information. A negative radiographic report should not delay biopsy if a dominant or clinically suspicious mass is present. Up to ten percent of cancers are not identified on mammography. A negative report may reinforce clinical impression. Adenosis and dense breasts may obscure an underlying neoplasm. False positive reports average 6 to 10%. Patient will receive a letter notifying them of these results.
== END 2025-04-29 03:44 ==
LOC: DI 03:24
PROVIDERS: PCP Physician Assistant Medical; Visit Provider Surgery
DX: R92.323 Mammographic fibroglandular density, bilateral breasts (principal); N63.21 Unspecified lump in the left breast, upper outer quadrant; D17.1 Benign lipomatous neoplasm of skin and subcutaneous tissue of trunk
CPT/HCPCS: 77061; 77065; G0279

== ENCOUNTER 2025-04-29 11:39 | Outpatient (REF) | payer MEDICARE, SELFPAY ==
--- NOTE | 2025-04-29 12:12 | BREAST_PTH ---
PATIENT: Crys Giraldo LOC: [facility] U#:[id number] AGE/SX: 44/F ROOM: RE04/29/[address]: Kayleen Jean Baptiste MD : [id number] BED: DIS: 04/29/2025 SPEC #: [id number] RECD: 04/29/25 12:48 STATUS: KATTY REQ #: [id number] TRACEY: 04/29/25 12:[address]: Kayleen Jean Baptiste DEPT: Surgical Specimen RECD BY: Elke Kumar ENTERED: 04/29/25 12:49 SP TYPE: Breast OTHR DR: Jo Shrestha Tissues: 1 - BREAST BX NEEDLE Procedures: GROSS AND MICRO LEVEL 4 Comments: [id number]
== END 2025-04-29 11:40 | disposition home or self-care (01) ==
LOC: LBN 11:39
PROVIDERS: PCP Physician Assistant Medical; Visit Provider Surgery
DX: D36.0 Benign neoplasm of lymph nodes (principal); D24.9 Benign neoplasm of unspecified breast
CPT/HCPCS: 88305

== ENCOUNTER → 2025-05-27 13:01 | Outpatient (BNVA) | payer MEDICARE, SELFPAY | PROVIDERS: PCP Physician Assistant Medical; Referring Provider Physician Assistant Medical; Visit Provider Surgery | DX: N60.32 Fibrosclerosis of left breast (principal) | CPT/HCPCS: 99213 ==

== ENCOUNTER → 2025-07-02 00:49 | Outpatient (CLI) | payer MEDICARE, SELFPAY ==
--- NOTE | 2025-07-02 | DI.RAD_ITS ---
Exam(s) XR ABDOMEN FLAT PLATE EXAM: XR ABDOMEN FLAT PLATE CLINICAL HISTORY: R19.8 ? overflow diarrhea and increased stool burden. TECHNIQUE: 2D digital imaging was performed. COMPARISON: No exams were available for comparison FINDINGS: AP supine view of the abdomen/pelvis: There surgical clips in right upper quadrant which are probably from prior cholecystectomy. There also fixation devices across both sacroiliac joints. There is also surgical clip in the left upper quadrant. The bowel gas pattern is nonspecific in the supine position. There appears to be moderate increased amount of fecal material in left side of the colon. No prominent fecal material in the right-side of the colon. IMPRESSION: Mostly increased fecal load in the left side of the colon. Other findings as above. DATA REPOSITORY: RADIATION DOSE DELIVERED:
== END ==
LOC: DI 00:49
PROVIDERS: PCP Physician Assistant Medical; Visit Provider Nurse Practitioner Gerontology
DX: R19.8 Other specified symptoms and signs involving the digestive system and abdomen (principal)
CPT/HCPCS: 74018

== ENCOUNTER 2025-07-06 16:23 | Outpatient (REF) | payer MEDICARE, SELFPAY ==
[2025-07-06 20:56] LABS: EPI 027-NAP1-B1 PRESUMPTIVE NEGATIVE
[2025-07-07 23:35] LABS: Campylobacter PCR Negative (Negative); Shiga Toxin PCR Negative (Negative); Shigella/Enteroinvasive Ecoli Negative (Negative)
== END 2025-07-06 16:24 | disposition home or self-care (01) ==
LOC: NCHCN 16:23
PROVIDERS: PCP Physician Assistant Medical; Visit Provider Nurse Practitioner Gerontology
DX: R19.8 Other specified symptoms and signs involving the digestive system and abdomen (principal)
CPT/HCPCS: 87015; 87269; 87272; 87505

== ENCOUNTER 2025-07-15 10:19 | Outpatient (REF) | payer MEDICARE, SELFPAY ==
[2025-07-15 16:25] LABS: Abs Immature Grans 0.03 10^3/uL (0.0-0.06); HCT 41.5 % (36.0-46.0); HGB 13.5 g/dL (11.2-15.7); Immature Grans % 0.4 %; MCH 33.6 pg (27.0-33.0); MCHC 32.5 % (32.0-36.0); MCV 103 fL (80-95); MPV 8.9 fL (8.0-11.0); Platelet Count 189 10^3/uL (130-400); RBC 4.02 10^6/uL (3.93-5.22); RDW 12.7 % (11.7-14.6); RDW-SD 49.2 fL; WBC 7.18 10^3/uL (4.4-10.8)
[2025-07-15 16:48] LABS: TSH 1.59 uIU/mL (0.55-4.78)
[2025-07-15 16:49] LABS: ALT 21 U/L (10-49); AST 22 U/L (<34); Albumin 4.1 g/dL (3.2-5.0); Alkaline Phosphatase 59 U/L (46-116); Anion Gap 6.7 mmol/L (3-11); BUN 7 mg/dL (9-23); Bilirubin, Total 0.4 mg/dL (0.2-1.2); CO2 24.3 mmol/L (20.0-31.0); Calcium 9.1 mg/dL (8.3-10.6); Chloride 106 mmol/L (98-107); Glucose 83 mg/dL (74-106); Potassium 4.5 mmol/L (3.5-5.1); Sodium 137 mmol/L (136-145); Total Protein 6.9 g/dL (5.7-8.2)
== END 2025-07-15 10:20 | disposition home or self-care (01) ==
LOC: NCHCN 10:19
PROVIDERS: PCP Physician Assistant Medical; Visit Provider Physician Assistant Medical
DX: R19.5 Other fecal abnormalities (principal); R11.0 Nausea
CPT/HCPCS: 80053; 82533; 82784; 84443; 85025

== ENCOUNTER → 2025-07-21 00:41 | Outpatient (CLI) | payer MEDICARE, SELFPAY ==
--- NOTE | 2025-07-21 | DI.CT_ITS ---
Exam(s) CT CHEST W EXAM: CT CHEST W CLINICAL HISTORY: R04.2 Cough w/hemoptysis TECHNIQUE: Imaging Protocol: Axial computed tomography images with coronal and sagittal reformatted images were created and reviewed. Computer aided detection (CAD) was utilized. CONTRAST MATERIAL: Intravenous: Omnipaque 350Contrast volume:70 mL. COMPARISON: CT CT CHEST W from 04/09/2025 FINDINGS: Tracheobronchial tree: Patent where visualized. No evidence of bronchiectasis. Pulmonary parenchyma: No consolidation or dominant measurable mass. No architectural distortion. There is a calcified granuloma in the right middle lobe. Mediastinum and Emma: No dominant adenopathy or fluid collection. The esophagus is unremarkable. Thyroid gland: There are no suspicious thyroid nodules. Pleura: No effusion or pneumothorax. Heart: The heart is not dilated. No coronary artery calcifications are seen. No pericardial effusion. Aorta: Thoracic aorta non-dilated. Pulmonary arteries: No pulmonary emboli are identified. Upper abdomen: There is prior gastric surgery. Lymph nodes: Within normal limits. Bones: Within normal limits for the patient's age. Soft tissues: Unremarkable. IMPRESSION: There is no acute pulmonary process. RADIATION DOSE DELIVERED: 131.16mGy.cm Total DLP DATA REPOSITORY: All CT scans at this facility are submitted to the National Radiology Data Registry (NRDR) Dose Index Registry (DIR) with the [employer] (ACR). RADIATION OPTIMIZATION: All CT scans at this facility use at least one of these dose optimization techniques: automated exposure control; mA and/or kV adjustment per patient size (includes targeted exams where dose is matched to clinical indication); or iterative reconstruction.
--- NOTE | 2025-07-21 13:44 | DI.US_ITS ---
APPROVED REPORT EXAM: Comprehensive 2D, Doppler, and color-flow Echocardiogram Patient Location: Out-Patient [facility] Operator: Bari Mantilla RDCS (AE) Indications: Cough w/hemoptysis, dyspnea Other Information Study Quality: Adequate. Technically limited study due to body habitus, smoker. Conclusion Normal left ventricular wall thickness and chamber size. Ejection fraction is 60%. Wall motion is normal Normal right ventricular size and function Both atria are normal in size There is no structural or hemodynamically significant valvular disease Wall motion Left Ventricle The left ventricle is normal size. The left ventricular systolic function is normal. The left ventricular ejection fraction is within the normal range. Low imaging window, smoker. There is normal left ventricular wall thickness. There is normal LV segmental wall motion. There is no ventricular septal defect visualized. LVEF is 60%. Right Ventricle The right ventricle is normal size. The right ventricular systolic function is normal. Atria The left atrium size is normal. The right atrium size is normal. The interatrial septum is intact with no evidence for an atrial septal defect. Aortic Valve The aortic valve is normal in structure. Aortic valve is trileaflet. There is no aortic valvular stenosis. No aortic regurgitation is present. Mitral Valve The mitral valve is normal in structure. No evidence of mitral valve stenosis. Trace mitral regurgitation. Tricuspid Valve The tricuspid valve is normal in structure. There is no tricuspid valve stenosis. Trace tricuspid regurgitation. Unable to assess PA pressure. Pulmonic Valve The pulmonary valve is normal in structure. There is no pulmonic valvular stenosis. There is no pulmonic valvular regurgitation. Great Vessels The aortic root is normal in size. Ascending aorta is not well visualized. Aortic arch is normal in caliber. IVC is normal in size and collapses >50% with inspiration. Pericardium There is no pericardial effusion. 2D Dimensions IVSD d PLAX 0.84 cm F: 0.6-1.0 Ao Root d 3.30 cm F: 2.7 - 3.3 LVPW d PLAX 0.80 cm F: 0.6 - 1.0 LVID d PLAX 4.51 cm F: 3.8 - 5.2 LVDs 3.10 cm F: 2.2 - 3.5 LV EF Teichholz 59.7 % FS 31.59 % LV EDV (Teich) 93.0 mL LV ESV (Teich) 37.5 mL M-Mode TAPSE 1.81 cm (M/F) >1.7 Auto EF LV EDV A4C 98.3 mL LV EDV A2C 119.3 mL LV EDV BP 108.1 mL LV ESV A4C 39.5 mL LV ESV A2C 48.1 mL LV ESV BP 44.0 mL LVEF(%) A4C 59.8 % LVEF(%) A2C 59.7 % LVEF(%) BP 59.3 % LV SV A4C 58.8 ml LV SV A2C 71.2 ml LV SV BP 64.1 ml LV CO A4C 3.6 L/min LV CO A2C 4.5 L/min LV CO BP 4.1 L/min HR A4C 61.42 BPM HR A2C 63.83 BPM LV EDV Index (BP) LA Volume LA Length A4C 4.0 cm LA Length A2C 5.0 cm LA Area A4C s 12.36 cm2 LA Area A2C s 16.53 cm2 LA Vol A4C A-L 32.44 mL LA Vol A2C A-L 46.46 mL LA Vol Biplane A-L 43.3 mL LA Vol/BSA A4C A-L LA Vol/BSA A2C A-L LA Vol/BSA BP A-L 23.8 mL/m2 LA Vol A4C MOD 28.8 mL LA Vol A2C MOD 42.1 mL LA Vol BP MOD 35.7 mL RA Volume RA Area A4C 10.3 cm2 RA ESV A4C (A-L) 23.5mL RA Vol/BSA A4C A-L RA Length A4C 3.8 cm RA ESV A4C (MOD) 23.0mL LV Diastology MV E' medial 0.103 (>0.07 m/s) MV E Vmax 0.98 (0.4-1.3 m/s) MV E/E' MED 9.54 (<14) MV A Vmax 0.75 (0.4-1.3 m/s) MV E' lateral 0.146 (>0.1 m/s) E/A Ratio 1.3 MV E/E' LAT 6.68 (<14) MV E' Average 0.125 m/s MV E/E'(average) 7.86 Aortic Valve AoV Vmax 1.12 m/s LVOT Vmax 0.98 m/s AoV Peak Grad 5.0 mmHg LVOT Peak Grad 3.8 mmHg AoV Area (Vmax) 2.69 cm2 LVOT VTI 0.218 m AoV VTI 0.253 m LVOT Mean Grad 2.0 mmHg AoV Mean Conrad. 0.78 m/s LVOT SV 67.29 mL AoV Mean Grad 2.8 mmHg LVOT Diam s 1.95 cm AoV Area (VTI) 2.66 cm2 AV Regurg Peak Gr. 5.02 mmHg Velocity Ratio 0.88 Mitral Valve MV DT 209 (160-240 msec) MV Vmax TIPS 0.77 m/s MV Mean Grad 1.0 (<2mmHg) MV VTI 0.275 m Pulmonary Valve PV Vmax 0.79 (0.5-1.5 m/s) RVOT Vmax 0.57 m/s PV Peak Grad 2.5 mmHg RVOT Peak Gr. 1.3 mmHg PV Mean Conrad 0.60 m/s RVOT VTI 0.181 m PV Mean Grad 1.6 mmHg RVOT Mean Gr. 0.8 mmHg Tricuspid Valve RA Pressure 3.00 mmHg TV S' 0.14 m/s
[2025-07-21] MEDS: Omnipaque 350 MG/ML 100 ML BTL IJ (14:18)
[2025-07-21] MEDS: Normal Saline - Diluent 50 ML VIAL IJ (14:18)
[2025-07-21] MEDS: Normal Saline Flush 10 ML SYR IVP (14:19)
== END ==
LOC: DI 00:41
PROVIDERS: PCP Physician Assistant Medical; Visit Provider Internal Medicine Cardiovascular Disease
DX: R06.00 Dyspnea, unspecified (principal); R04.2 Hemoptysis
CPT/HCPCS: 93306; 71260; J3490